=== PATIENT | female | born 1980 | race Two or more races ===

== ENCOUNTER 2023-11-10 16:56 | Inpatient (IN) | payer MEDICARE, MEDICAID ==
[~2023-11-10] VITALS: Ht 175.3 cm; Wt 106.0 kg
[~2023-11-10 16:56] MED LIST: FAMO-1 PO; GLIM4TAB7 PO; LANS15CA15 PO; METF-436 PO; OMEP-84 PO; SIMV-42 PO; SITA100T15 PO; SUCR1ORA2 PO
[2023-11-10] MEDS: normal saline 1000ML IV soln IVB ONE (20:30)
[2023-11-10] MEDS: acetaminophen 325mg tablet PO ONE (20:30)
[2023-11-10] MEDS: ondansetron/PF 4mg/2ml inj IV ONE (20:30)
[2023-11-10] MEDS ORDERED: iohexol 350MG/ML 100ml bottle IV ONE (20:42)
[2023-11-10 20:51] LABS: BASOPHILS % (AUTO) 0.4 % (0-1); EOSINOPHILS # (AUTO) 0.3 X10'3 (0-0.9); EOSINOPHILS % (AUTO) 2.1 % (0-6); HEMATOCRIT 42.8 % (35.0-45.0); HEMOGLOBIN 14.2 g/dl (12.0-16.0); LYMPHOCYTES # (AUTO) 4.7 X10'3 (1.1-4.8); LYMPHOCYTES % (AUTO) 37.4 % (21-51); MEAN CORPUSCULAR HEMOGLOBIN 27.6 PG (27.0-31.0); MEAN CORPUSCULAR HGB CONC 33.2 g/dL (33.0-36.5); MEAN CORPUSCULAR VOLUME 83.2 FL (78-98); MONOCYTES # (AUTO) 0.6 X10'3 (0-0.9); MONOCYTES % (AUTO) 4.9 % (2-12); NEUTROPHILS # (AUTO) 6.9 X10'3 (1.8-7.7); NEUTROPHILS % (AUTO) 55.2 % (42-75); PLATELET COUNT 248 X10'3 (140-440); RED BLOOD COUNT 5.14 X10'6 (4.20-5.60); RED CELL DISTRIBUTION WIDTH 13.8 % (11.5-14.5); WHITE BLOOD COUNT 12.4 X10'3 (4.5-11.0)
[2023-11-10 21:10] LABS: ALBUMIN 3.1 G/DL (3.4-5.0); ANION GAP 6 (8-16); BLOOD UREA NITROGEN 15 MG/DL (7-18); BUN/CREATININE RATIO 17.9 (10.0-20.0); CALCIUM 8.8 MG/DL (8.5-10.1); CHLORIDE 103 MMOL/L (99-107); CREATININE 0.84 MG/DL (0.40-0.90); GLUCOSE 220 MG/DL (70-104); MAGNESIUM 1.9 MG/DL (1.5-2.4); PHOSPHORUS 4.2 MG/DL (2.3-4.5); POTASSIUM 4.2 MMOL/L (3.5-5.1); PRO BRAIN NATRIURETIC PEPTIDE 190 PG/ML (0-125); SODIUM 139 MMOL/L (135-145); TOTAL CARBON DIOXIDE 30.3 MMOL/L (24-32); eCRCL 88 ML/MIN; eGFR 73 ML/MIN
[2023-11-10 21:13] LABS: ETHANOL < 10 MG/DL (<10)
[2023-11-10 21:20] LABS: APTT 27 SECONDS (22-32); PROTHROMBIN TIME 10.6 SECONDS (9.0-12.0)
[2023-11-10 22:20] LABS: BILIRUBIN,URINE NEGATIVE (Neg); CLARITY,URINE CLEAR (Clear); COLOR,URINE YELLOW (Yellow); GLUCOSE, URINE >=1000 mg/dl (Neg); KETONES,URINE NEGATIVE (Neg); LEUKOCYTE ESTERASE ,URINE NEGATIVE (Neg); NITRITES, URINE NEGATIVE (Neg); OCCULT BLOOD,URINE LARGE (Neg); PROTEIN,URINE NEGATIVE (Neg)
[2023-11-10 22:23] LABS: UA COLLECTION TYPE CLN CATCH MIDSTREAM
[2023-11-10 22:42] LABS: URINE AMPHETAMINE SCREEN NEGATIVE (Neg); URINE BARBITUATE SCREEN NEGATIVE (Neg); URINE BENZODIAZEPINES SCREEN NEGATIVE (Neg); URINE CANNABINOID SCREEN NEGATIVE (Neg); URINE COCAINE SCREEN NEGATIVE (Neg); URINE METHADONE SCREEN NEGATIVE (Neg); URINE OPIATE SCREEN NEGATIVE (Neg); URINE PHENCYCLIDINE SCREEN NEGATIVE (Neg)
[2023-11-10 22:57] LABS: BACTERIA,URINE NONE SEEN /HPF (Neg); WBC,URINE 0-4 /HPF (0-4)
[2023-11-10 22:58] LABS: SQUAMOUS EPITHELIAL CELL,UR FEW /LPF (FEW)
[2023-11-10] MEDS: hydrALAZINE 20mg/ml inj. IV ONE (23:17)
[2023-11-11] MEDS ORDERED: magnesium hydroxide 30ml (MOM) UD suspension PO PRN (03:45)
[2023-11-11] MEDS ORDERED: HYDROcodone/acetaminophen 5mg/325mg tablet PO PRN (03:45)
[2023-11-11] MEDS ORDERED: diphenhydrAMINE 50 mg/ml inj IV PRN (03:45)
[2023-11-11] MEDS ORDERED: diphenhydrAMINE 25mg capsule PO PRN (03:45)
[2023-11-11] MEDS ORDERED: morphine 2 MG/ML inj. syringe IV PRN (03:45)
[2023-11-11] MEDS ORDERED: mag hydrox/Alum hydrox/simeth 30ml oral suspension PO PRN (03:45)
[2023-11-11] MEDS ORDERED: ondansetron/PF 4mg/2ml inj IV PRN (03:45)
[2023-11-11] MEDS ORDERED: acetaminophen 325mg tablet PO PRN ×2 (03:45)
[2023-11-11] MEDS ORDERED: ondansetron 4mg rapidly disintigrating tab PO PRN (03:45)
[2023-11-11] MEDS ORDERED: DEXTROSE 15 GM of carb/4 tabs (each vial/BOTTLE has 4 tablets) PO PRN ×2 (04:15)
[2023-11-11] MEDS ORDERED: dextrose 50%-water 50ml dispensing syringe IV PRN (04:15)
[2023-11-11] MEDS ORDERED: glucagon, human recombinant 1mg kit SUBCUT PRN (04:15)
[2023-11-11] MEDS: MESSAGE TO PHARMACY PO ONE (04:30)
[2023-11-11] MEDS: docusate sod 100mg capsule PO SCH (08:00)
[2023-11-11 08:20] LABS: APTT 26 SECONDS (22-32); PROTHROMBIN TIME 10.9 SECONDS (9.0-12.0)
[2023-11-11 08:41] LABS: THYROID STIMULATING HORMONE 0.63 ulU/ml (0.34-4.50)
[2023-11-11] MEDS: normal saline 1000ml 1,000 ML IV SCH (12:35)
[2023-11-11] MEDS: aspirin 81mg, enteric-coated 1 TAB TABLET.DR PO SCH (12:35)
[2023-11-11] MEDS: aspirin 300mg supp.rect RC ONE (12:55)
[2023-11-11 19:20] VITALS: BP 187/71; PULSE 73; RESP 16; TEMP 98; O2SAT 92
[2023-11-11 20:00] VITALS: BP 187/71; PULSE 16; RESP 13; RESP 18; TEMP 98; O2SAT 92; O2SAT 99
[2023-11-11] MEDS ORDERED: temazepam 15mg capsule PO PRN (21:00)
[2023-11-11] MEDS: clopidogrel 75mg tablet PO ONE (21:21)
[2023-11-11] MEDS: heparin, porcine 5000 units/ml vial SQ SCH (21:21)
[2023-11-11 22:00] VITALS: BP 176/65; PULSE 60; RESP 18; TEMP 98.2; O2SAT 99
[2023-11-11] MEDS: modafinil 100mg tablet PO SCH (22:06)
[2023-11-11] MEDS: insulin glargine (Lantus) pen - multi-dose SQ SCH (22:06)
[2023-11-12] VITALS (9 sets, daily range): BP systolic 132–184; BP diastolic 60–99; PULSE 59–85; RESP 13–18; TEMP 97.6–98.6; O2SAT 96–99
[2023-11-12 06:10] LABS: BASOPHILS # (AUTO) 0.1 X10'3 (0-0.2); BASOPHILS % (AUTO) 0.5 % (0-1); EOSINOPHILS # (AUTO) 0.2 X10'3 (0-0.9); EOSINOPHILS % (AUTO) 1.6 % (0-6); HEMATOCRIT 42.8 % (35.0-45.0); HEMOGLOBIN 14.4 g/dl (12.0-16.0); LYMPHOCYTES # (AUTO) 4.1 X10'3 (1.1-4.8); LYMPHOCYTES % (AUTO) 35.8 % (21-51); MEAN CORPUSCULAR HEMOGLOBIN 27.8 PG (27.0-31.0); MEAN CORPUSCULAR HGB CONC 33.5 g/dL (33.0-36.5); MEAN CORPUSCULAR VOLUME 82.7 FL (78-98); MEAN PLATELET VOLUME 8.3 FL (7.4-10.4); MONOCYTES # (AUTO) 0.7 X10'3 (0-0.9); MONOCYTES % (AUTO) 6.1 % (2-12); NEUTROPHILS # (AUTO) 6.4 X10'3 (1.8-7.7); PLATELET COUNT 232 X10'3 (140-440); RED BLOOD COUNT 5.17 X10'6 (4.20-5.60); RED CELL DISTRIBUTION WIDTH 13.7 % (11.5-14.5); WHITE BLOOD COUNT 11.5 X10'3 (4.5-11.0)
[2023-11-12 06:19] LABS: ALANINE AMINOTRANSFERASE 11 U/L (12-78); ALBUMIN 3.1 G/DL (3.4-5.0); ALBUMIN/GLOBULIN RATIO 0.7 (1.1-1.5); ALKALINE PHOSPHATASE 67 IU/L (46-116); ANION GAP 12 (8-16); ASPARTATE AMINO TRANSFERASE 13 U/L (10-37); BILIRUBIN,TOTAL 1.2 MG/DL (0.1-1.0); BLOOD UREA NITROGEN 15 MG/DL (7-18); BUN/CREATININE RATIO 17.6 (10.0-20.0); CALCIUM 8.4 MG/DL (8.5-10.1); CHLORIDE 105 MMOL/L (99-107); CHOL/HDL RATIO 4.9 (0.00-4.99); CHOLESTEROL 229 MG/DL (0-200); CREATININE 0.85 MG/DL (0.40-0.90); GLUCOSE 204 MG/DL (70-104); HDL CHOLESTEROL 47 MG/DL (35-60); LDL CHOLESTEROL 158 MG/DL (50-100); POTASSIUM 3.7 MMOL/L (3.5-5.1); SODIUM 141 MMOL/L (135-145); TOTAL CARBON DIOXIDE 23.8 MMOL/L (24-32); TOTAL PROTEIN 7.7 G/DL (6.4-8.2); TRIGLYCERIDES 131 MG/DL (20-135); eCRCL 87 ML/MIN; eGFR 72 ML/MIN
[2023-11-12] MEDS: atorvastatin 20mg tablet PO SCH (07:16)
[2023-11-12] MEDS: clopidogrel 75mg tablet PO SCH (07:16)
[2023-11-12] MEDS: losartan 25mg tablet PO SCH (07:17)
[2023-11-12] MEDS ORDERED: atorvastatin 20mg tablet PO SCH (08:00)
[2023-11-12] MEDS: insulin Lispro (HumaLOG) vial - multi-dose SQ SCH (09:14)
[2023-11-12] MEDS: amLODIPine 5mg tablet PO SCH (09:53)
[2023-11-13] VITALS (10 sets, daily range): BP systolic 145–159; BP diastolic 62–80; PULSE 55–85; RESP 12–19; TEMP 96.8–98.4; O2SAT 94–100
[2023-11-13 07:08] LABS: BASOPHILS # (AUTO) 0.1 X10'3 (0-0.2); EOSINOPHILS # (AUTO) 0.2 X10'3 (0-0.9); EOSINOPHILS % (AUTO) 1.8 % (0-6); HEMATOCRIT 42.2 % (35.0-45.0); HEMOGLOBIN 14.1 g/dl (12.0-16.0); LYMPHOCYTES # (AUTO) 3.9 X10'3 (1.1-4.8); MEAN CORPUSCULAR HEMOGLOBIN 27.6 PG (27.0-31.0); MEAN CORPUSCULAR HGB CONC 33.4 g/dL (33.0-36.5); MEAN CORPUSCULAR VOLUME 82.6 FL (78-98); MEAN PLATELET VOLUME 8.4 FL (7.4-10.4); MONOCYTES # (AUTO) 0.5 X10'3 (0-0.9); MONOCYTES % (AUTO) 5.4 % (2-12); NEUTROPHILS # (AUTO) 5.3 X10'3 (1.8-7.7); NEUTROPHILS % (AUTO) 52.8 % (42-75); PLATELET COUNT 244 X10'3 (140-440); RED BLOOD COUNT 5.11 X10'6 (4.20-5.60); RED CELL DISTRIBUTION WIDTH 13.5 % (11.5-14.5)
[2023-11-13 08:08] LABS: ALANINE AMINOTRANSFERASE 13 U/L (12-78); ALBUMIN 2.9 G/DL (3.4-5.0); ALBUMIN/GLOBULIN RATIO 0.6 (1.1-1.5); ALKALINE PHOSPHATASE 62 IU/L (46-116); ANION GAP 13 (8-16); BILIRUBIN,TOTAL 1.2 MG/DL (0.1-1.0); BLOOD UREA NITROGEN 17 MG/DL (7-18); BUN/CREATININE RATIO 19.8 (10.0-20.0); CALCIUM 8.5 MG/DL (8.5-10.1); CHLORIDE 105 MMOL/L (99-107); CREATININE 0.86 MG/DL (0.40-0.90); GLUCOSE 165 MG/DL (70-104); SODIUM 140 MMOL/L (135-145); TOTAL CARBON DIOXIDE 22.2 MMOL/L (24-32); TOTAL PROTEIN 7.7 G/DL (6.4-8.2); eCRCL 86 ML/MIN; eGFR 71 ML/MIN
[2023-11-13 08:14] LABS: ASPARTATE AMINO TRANSFERASE 22 U/L (10-37); POTASSIUM 3.5 MMOL/L (3.5-5.1)
[2023-11-13] MEDS ORDERED: iohexol 350MG/ML 100ml bottle IV ONE (17:16)
[2023-11-13] MEDS: aspirin 300mg supp.rect RC SCH (18:50)
[2023-11-14] VITALS (12 sets, daily range): BP systolic 133–176; BP diastolic 69–90; PULSE 53–79; RESP 15–24; TEMP 96–98.6; O2SAT 93–98
[2023-11-14 06:45] LABS: BASOPHILS % (AUTO) 0.4 % (0-1); EOSINOPHILS # (AUTO) 0.2 X10'3 (0-0.9); EOSINOPHILS % (AUTO) 2.2 % (0-6); HEMATOCRIT 44.5 % (35.0-45.0); HEMOGLOBIN 14.9 g/dl (12.0-16.0); LYMPHOCYTES # (AUTO) 3.5 X10'3 (1.1-4.8); LYMPHOCYTES % (AUTO) 34.5 % (21-51); MEAN CORPUSCULAR HEMOGLOBIN 27.8 PG (27.0-31.0); MEAN CORPUSCULAR HGB CONC 33.6 g/dL (33.0-36.5); MEAN CORPUSCULAR VOLUME 82.9 FL (78-98); MEAN PLATELET VOLUME 8.1 FL (7.4-10.4); MONOCYTES # (AUTO) 0.6 X10'3 (0-0.9); MONOCYTES % (AUTO) 5.7 % (2-12); NEUTROPHILS # (AUTO) 5.7 X10'3 (1.8-7.7); NEUTROPHILS % (AUTO) 57.2 % (42-75); PLATELET COUNT 238 X10'3 (140-440); RED BLOOD COUNT 5.37 X10'6 (4.20-5.60); RED CELL DISTRIBUTION WIDTH 13.6 % (11.5-14.5)
[2023-11-14 07:15] LABS: ALANINE AMINOTRANSFERASE 14 U/L (12-78); ALBUMIN 3.1 G/DL (3.4-5.0); ALBUMIN/GLOBULIN RATIO 0.6 (1.1-1.5); ALKALINE PHOSPHATASE 65 IU/L (46-116); ANION GAP 15 (8-16); ASPARTATE AMINO TRANSFERASE 14 U/L (10-37); BILIRUBIN,TOTAL 1.1 MG/DL (0.1-1.0); BLOOD UREA NITROGEN 16 MG/DL (7-18); BUN/CREATININE RATIO 18.6 (10.0-20.0); CALCIUM 8.5 MG/DL (8.5-10.1); CHLORIDE 106 MMOL/L (99-107); CREATININE 0.86 MG/DL (0.40-0.90); GLUCOSE 131 MG/DL (70-104); POTASSIUM 3.3 MMOL/L (3.5-5.1); SODIUM 143 MMOL/L (135-145); TOTAL CARBON DIOXIDE 21.6 MMOL/L (24-32); TOTAL PROTEIN 8.1 G/DL (6.4-8.2); eCRCL 86 ML/MIN; eGFR 71 ML/MIN
[2023-11-15] VITALS (12 sets, daily range): BP systolic 160–201; BP diastolic 75–107; PULSE 62–93; RESP 10–24; TEMP 97.4–98; O2SAT 95–96
[2023-11-15 07:22] LABS: BASOPHILS % (AUTO) 0.4 % (0-1); EOSINOPHILS # (AUTO) 0.2 X10'3 (0-0.9); EOSINOPHILS % (AUTO) 1.8 % (0-6); HEMOGLOBIN 14.8 g/dl (12.0-16.0); LYMPHOCYTES # (AUTO) 2.9 X10'3 (1.1-4.8); LYMPHOCYTES % (AUTO) 30.6 % (21-51); MEAN CORPUSCULAR HEMOGLOBIN 27.8 PG (27.0-31.0); MEAN CORPUSCULAR HGB CONC 33.6 g/dL (33.0-36.5); MEAN CORPUSCULAR VOLUME 82.8 FL (78-98); MEAN PLATELET VOLUME 8.7 FL (7.4-10.4); MONOCYTES # (AUTO) 0.6 X10'3 (0-0.9); NEUTROPHILS # (AUTO) 5.8 X10'3 (1.8-7.7); NEUTROPHILS % (AUTO) 61.2 % (42-75); PLATELET COUNT 258 X10'3 (140-440); RED BLOOD COUNT 5.32 X10'6 (4.20-5.60); RED CELL DISTRIBUTION WIDTH 13.5 % (11.5-14.5); WHITE BLOOD COUNT 9.4 X10'3 (4.5-11.0)
[2023-11-15 07:35] LABS: ALANINE AMINOTRANSFERASE 16 U/L (12-78); ALBUMIN 3.1 G/DL (3.4-5.0); ALBUMIN/GLOBULIN RATIO 0.6 (1.1-1.5); ALKALINE PHOSPHATASE 61 IU/L (46-116); ANION GAP 15 (8-16); ASPARTATE AMINO TRANSFERASE 14 U/L (10-37); BILIRUBIN,TOTAL 1.1 MG/DL (0.1-1.0); BLOOD UREA NITROGEN 18 MG/DL (7-18); BUN/CREATININE RATIO 22.8 (10.0-20.0); CALCIUM 8.6 MG/DL (8.5-10.1); CHLORIDE 106 MMOL/L (99-107); CREATININE 0.79 MG/DL (0.40-0.90); GLUCOSE 120 MG/DL (70-104); POTASSIUM 3.2 MMOL/L (3.5-5.1); SODIUM 143 MMOL/L (135-145); TOTAL CARBON DIOXIDE 21.7 MMOL/L (24-32); eCRCL 94 ML/MIN; eGFR 79 ML/MIN
[2023-11-15] MEDS ORDERED: hydrALAZINE 20mg/ml inj. IV PRN (10:50)
[2023-11-15] MEDS: aspirin 300mg supp.rect RC ONE (16:15)
[2023-11-15] MEDS ORDERED: magnesium 4gm in 100ml NS 100 ML IV PRN (18:50)
[2023-11-15] MEDS ORDERED: potassium Cl 20 mEq SR tablet PO PRN (18:50)
[2023-11-15] MEDS ORDERED: magnesium Cl slow-release 64mg tablet PO PRN (18:50)
[2023-11-15] MEDS ORDERED: magnesium 2GM in 50ml NS 50 ML IV PRN (18:50)
[2023-11-15] MEDS ORDERED: iohexol 350MG/ML 100ml bottle IV ONE (19:41)
[2023-11-15] MEDS: K and/or MAG REPLACEMENT MC SCH (20:00)
[2023-11-15] MEDS: morphine 2 MG/ML inj. syringe IV PRN (20:26)
[2023-11-15] MEDS: potassium Cl 20 mEq SR tablet PO PRN (21:55)
[2023-11-16] VITALS (16 sets, daily range): BP systolic 129–190; BP diastolic 72–95; PULSE 71–96; RESP 14–18; TEMP 97.6–98.9; O2SAT 87–98
[2023-11-16] MEDS: potassium Cl 40MEQ/1/2NS 520ml 520 ML IV PRN (00:02)
[2023-11-16 06:27] LABS: BASOPHILS # (AUTO) 0.1 X10'3 (0-0.2); BASOPHILS % (AUTO) 0.5 % (0-1); EOSINOPHILS # (AUTO) 0.2 X10'3 (0-0.9); EOSINOPHILS % (AUTO) 1.8 % (0-6); HEMATOCRIT 44.2 % (35.0-45.0); HEMOGLOBIN 14.9 g/dl (12.0-16.0); LYMPHOCYTES # (AUTO) 3.4 X10'3 (1.1-4.8); LYMPHOCYTES % (AUTO) 28.8 % (21-51); MEAN CORPUSCULAR HEMOGLOBIN 27.9 PG (27.0-31.0); MEAN CORPUSCULAR HGB CONC 33.6 g/dL (33.0-36.5); MEAN CORPUSCULAR VOLUME 82.8 FL (78-98); MEAN PLATELET VOLUME 8.6 FL (7.4-10.4); MONOCYTES # (AUTO) 0.6 X10'3 (0-0.9); MONOCYTES % (AUTO) 5.5 % (2-12); NEUTROPHILS # (AUTO) 7.4 X10'3 (1.8-7.7); NEUTROPHILS % (AUTO) 63.4 % (42-75); PLATELET COUNT 264 X10'3 (140-440); RED BLOOD COUNT 5.33 X10'6 (4.20-5.60); RED CELL DISTRIBUTION WIDTH 13.5 % (11.5-14.5); WHITE BLOOD COUNT 11.7 X10'3 (4.5-11.0)
[2023-11-16 06:51] LABS: ALANINE AMINOTRANSFERASE 14 U/L (12-78); ALBUMIN 3.1 G/DL (3.4-5.0); ALBUMIN/GLOBULIN RATIO 0.6 (1.1-1.5); ALKALINE PHOSPHATASE 63 IU/L (46-116); ANION GAP 15 (8-16); ASPARTATE AMINO TRANSFERASE 13 U/L (10-37); BILIRUBIN,TOTAL 1.1 MG/DL (0.1-1.0); BLOOD UREA NITROGEN 17 MG/DL (7-18); BUN/CREATININE RATIO 21.5 (10.0-20.0); CALCIUM 8.8 MG/DL (8.5-10.1); CHLORIDE 105 MMOL/L (99-107); CREATININE 0.79 MG/DL (0.40-0.90); GLUCOSE 140 MG/DL (70-104); PREALBUMIN 18.2 MG/DL (19-36); SODIUM 140 MMOL/L (135-145); TOTAL CARBON DIOXIDE 19.9 MMOL/L (24-32); TOTAL PROTEIN 8.2 G/DL (6.4-8.2); eCRCL 94 ML/MIN; eGFR 79 ML/MIN
[2023-11-16] MEDS: MIDAZolam 1 MG/ML 5ML VIAL IV ONE (13:00)
[2023-11-16] MEDS: fentaNYL/PF 50MCG/1 ML 2ML syringe IV ONE (13:00)
[2023-11-16] MEDS ORDERED: midazolam 1 mg/ML 2ml injection ONE (14:39)
[2023-11-16] MEDS ORDERED: fentaNYL/PF 50MCG/1 ML 2ML syringe ONE (14:39)
[2023-11-16] MEDS: docusate sodium 100mg/10ml UD cup PO SCH (20:00)
[2023-11-16] MEDS: oxymetazoline 15 ML nasal spray NS ONE (20:18)
[2023-11-17] VITALS (9 sets, daily range): BP systolic 134–189; BP diastolic 77–106; PULSE 72–99; RESP 16; TEMP 97.4–98.9; O2SAT 93–98
[2023-11-17 08:17] LABS: HIV ANTIBODY 1&2 RAPID NON-REACTIVE (Neg)
[2023-11-18] VITALS (9 sets, daily range): BP systolic 126–171; BP diastolic 78–96; PULSE 63–96; RESP 14–20; TEMP 97.3–98.9; O2SAT 92–97
[2023-11-18 06:59] LABS: BASOPHILS # (AUTO) 0.1 X10'3 (0-0.2); BASOPHILS % (AUTO) 0.6 % (0-1); EOSINOPHILS # (AUTO) 0.3 X10'3 (0-0.9); EOSINOPHILS % (AUTO) 2.6 % (0-6); HEMATOCRIT 43.2 % (35.0-45.0); HEMOGLOBIN 14.5 g/dl (12.0-16.0); LYMPHOCYTES # (AUTO) 2.8 X10'3 (1.1-4.8); LYMPHOCYTES % (AUTO) 25.6 % (21-51); MEAN CORPUSCULAR HEMOGLOBIN 27.9 PG (27.0-31.0); MEAN CORPUSCULAR HGB CONC 33.6 g/dL (33.0-36.5); MEAN CORPUSCULAR VOLUME 82.8 FL (78-98); MEAN PLATELET VOLUME 8.7 FL (7.4-10.4); MONOCYTES # (AUTO) 0.7 X10'3 (0-0.9); MONOCYTES % (AUTO) 5.9 % (2-12); NEUTROPHILS # (AUTO) 7.2 X10'3 (1.8-7.7); NEUTROPHILS % (AUTO) 65.3 % (42-75); PLATELET COUNT 237 X10'3 (140-440); RED BLOOD COUNT 5.21 X10'6 (4.20-5.60); RED CELL DISTRIBUTION WIDTH 13.9 % (11.5-14.5)
[2023-11-18 07:19] LABS: ALANINE AMINOTRANSFERASE 11 U/L (12-78); ALBUMIN 2.9 G/DL (3.4-5.0); ALBUMIN/GLOBULIN RATIO 0.6 (1.1-1.5); ALKALINE PHOSPHATASE 60 IU/L (46-116); ANION GAP 11 (8-16); ASPARTATE AMINO TRANSFERASE 14 U/L (10-37); BLOOD UREA NITROGEN 19 MG/DL (7-18); BUN/CREATININE RATIO 26.8 (10.0-20.0); CALCIUM 8.7 MG/DL (8.5-10.1); CHLORIDE 106 MMOL/L (99-107); CREATININE 0.71 MG/DL (0.40-0.90); GLUCOSE 165 MG/DL (70-104); POTASSIUM 3.7 MMOL/L (3.5-5.1); PREALBUMIN 17.2 MG/DL (19-36); SODIUM 140 MMOL/L (135-145); TOTAL CARBON DIOXIDE 23.5 MMOL/L (24-32); eCRCL 105 ML/MIN; eGFR 89 ML/MIN
[2023-11-19] VITALS (13 sets, daily range): BP systolic 122–171; BP diastolic 65–88; PULSE 62–77; RESP 13–24; TEMP 96.8–98.6; O2SAT 94–99
[2023-11-19 07:45] LABS: BASOPHILS % (AUTO) 0.5 % (0-1); EOSINOPHILS # (AUTO) 0.3 X10'3 (0-0.9); EOSINOPHILS % (AUTO) 2.9 % (0-6); HEMOGLOBIN 14.4 g/dl (12.0-16.0); LYMPHOCYTES # (AUTO) 2.8 X10'3 (1.1-4.8); LYMPHOCYTES % (AUTO) 26.5 % (21-51); MEAN CORPUSCULAR HEMOGLOBIN 27.8 PG (27.0-31.0); MEAN CORPUSCULAR HGB CONC 33.4 g/dL (33.0-36.5); MEAN CORPUSCULAR VOLUME 83.3 FL (78-98); MEAN PLATELET VOLUME 8.8 FL (7.4-10.4); MONOCYTES # (AUTO) 0.6 X10'3 (0-0.9); MONOCYTES % (AUTO) 5.6 % (2-12); NEUTROPHILS # (AUTO) 6.8 X10'3 (1.8-7.7); NEUTROPHILS % (AUTO) 64.5 % (42-75); PLATELET COUNT 248 X10'3 (140-440); RED BLOOD COUNT 5.16 X10'6 (4.20-5.60); RED CELL DISTRIBUTION WIDTH 13.6 % (11.5-14.5); WHITE BLOOD COUNT 10.6 X10'3 (4.5-11.0)
[2023-11-19] MEDS: chlorhexidine gluconate 15ml Cup****oral rinse MM SCH (08:00)
[2023-11-19 09:39] LABS: ALANINE AMINOTRANSFERASE 11 U/L (12-78); ALBUMIN/GLOBULIN RATIO 0.6 (1.1-1.5); ALKALINE PHOSPHATASE 58 IU/L (46-116); ANION GAP 12 (8-16); ASPARTATE AMINO TRANSFERASE 13 U/L (10-37); BILIRUBIN,TOTAL 0.9 MG/DL (0.1-1.0); BLOOD UREA NITROGEN 22 MG/DL (7-18); BUN/CREATININE RATIO 28.6 (10.0-20.0); CALCIUM 9.2 MG/DL (8.5-10.1); CHLORIDE 106 MMOL/L (99-107); CREATININE 0.77 MG/DL (0.40-0.90); GLUCOSE 165 MG/DL (70-104); POTASSIUM 3.6 MMOL/L (3.5-5.1); SODIUM 142 MMOL/L (135-145); TOTAL CARBON DIOXIDE 24.1 MMOL/L (24-32); TOTAL PROTEIN 8.2 G/DL (6.4-8.2); eCRCL 96 ML/MIN; eGFR 81 ML/MIN
[2023-11-19] MEDS ORDERED: BUPIVAcaine 2.5mg/ml inj 50ml vial (contains preservative) ONE (15:31)
[2023-11-19] MEDS ORDERED: sevoflurane 250ml liquid IH ONE (15:48)
[2023-11-19] MEDS ORDERED: propofol 10mg/ml 20ml vial IV ONE (15:48)
[2023-11-19] MEDS ORDERED: fentaNYL/PF 50MCG/1 ML 2ML syringe ONE (15:58)
[2023-11-19] MEDS: BUPIVAcaine/PF 2.5 mg/ml (0.25%) 30ml vial IJ ONE (16:50)
[2023-11-19] MEDS ORDERED: ceFOXitin 1000 MG inj ONE ×2 (17:32)
[2023-11-19] MEDS ORDERED: midazolam 1 mg/ML 2ml injection ONE (17:32)
[2023-11-19] MEDS ORDERED: LIDOcaine 2% (20mg/ml) 5ml vial ONE (17:33)
[2023-11-19] MEDS ORDERED: rocuronium 10mg/ml inj IV ONE ×2 (17:33)
[2023-11-19] MEDS ORDERED: etomidate 2mg/ml inj. ONE (17:33)
[2023-11-19] MEDS ORDERED: phenylephrine 10mg/ml inj. -priapism dosing ONE (17:33)
[2023-11-19] MEDS ORDERED: ondansetron/PF 4mg/2ml inj ONE (17:34)
[2023-11-19] MEDS ORDERED: dexamethasone sod phosphate 4mg/ml inj. ONE (17:34)
[2023-11-19] MEDS ORDERED: neostigmine methylsulfate 1 MG/ML 10ml vial ONE (17:39)
[2023-11-19] MEDS ORDERED: glycopyrrolate 0.2mg/ml inj ONE (17:39)
[2023-11-19] MEDS: ringers solution, lacted 1,000 ML IV SCH (18:05)
[2023-11-19] MEDS ORDERED: proCHLORperazine 10 MG/2 ml inj IV PRN (18:05)
[2023-11-19] MEDS ORDERED: ondansetron/PF 4mg/2ml inj IV PRN (18:05)
[2023-11-19] MEDS ORDERED: HYDROmorphone/PF 0.2 MG/ML SYRINGE IV PRN ×2 (18:05)
[2023-11-19] MEDS ORDERED: morphine 4 MG/ML inj SYRINge IV PRN (18:05)
[2023-11-19] MEDS ORDERED: morphine 2 MG/ML inj. syringe IV PRN (18:05)
[2023-11-19 20:57] LABS: PREOP HCG, QL SERUM NEGATIVE (NEGATIVE)
[2023-11-19] MEDS: acetaminophen 1,000mg/100ml IV 100 ML IV ONE (21:34)
[2023-11-20] VITALS (9 sets, daily range): BP systolic 123–180; BP diastolic 59–86; PULSE 56–70; RESP 15–18; TEMP 97.7–99.1; O2SAT 95–97
[2023-11-20] MEDS: acetaminophen 650mg rectal suppository RC PRN (05:23)
[2023-11-20 07:45] LABS: BASOPHILS % (AUTO) 0.2 % (0-1); EOSINOPHILS % (AUTO) 0 % (0-6); HEMATOCRIT 41.6 % (35.0-45.0); HEMOGLOBIN 13.6 g/dl (12.0-16.0); LYMPHOCYTES # (AUTO) 2.2 X10'3 (1.1-4.8); LYMPHOCYTES % (AUTO) 16.5 % (21-51); MEAN CORPUSCULAR HEMOGLOBIN 27.5 PG (27.0-31.0); MEAN CORPUSCULAR HGB CONC 32.7 g/dL (33.0-36.5); MEAN CORPUSCULAR VOLUME 84.2 FL (78-98); MONOCYTES # (AUTO) 0.8 X10'3 (0-0.9); MONOCYTES % (AUTO) 5.8 % (2-12); NEUTROPHILS # (AUTO) 10.3 X10'3 (1.8-7.7); NEUTROPHILS % (AUTO) 77.5 % (42-75); PLATELET COUNT 247 X10'3 (140-440); RED BLOOD COUNT 4.94 X10'6 (4.20-5.60); RED CELL DISTRIBUTION WIDTH 13.3 % (11.5-14.5); WHITE BLOOD COUNT 13.3 X10'3 (4.5-11.0)
[2023-11-20 08:02] LABS: ALANINE AMINOTRANSFERASE 12 U/L (12-78); ALBUMIN 2.7 G/DL (3.4-5.0); ALBUMIN/GLOBULIN RATIO 0.6 (1.1-1.5); ALKALINE PHOSPHATASE 55 IU/L (46-116); ANION GAP 10 (8-16); ASPARTATE AMINO TRANSFERASE 14 U/L (10-37); BILIRUBIN,TOTAL 0.9 MG/DL (0.1-1.0); BLOOD UREA NITROGEN 28 MG/DL (7-18); BUN/CREATININE RATIO 34.1 (10.0-20.0); CHLORIDE 108 MMOL/L (99-107); CREATININE 0.82 MG/DL (0.40-0.90); GLUCOSE 161 MG/DL (70-104); POTASSIUM 4.1 MMOL/L (3.5-5.1); SODIUM 143 MMOL/L (135-145); TOTAL CARBON DIOXIDE 25.4 MMOL/L (24-32); TOTAL PROTEIN 7.6 G/DL (6.4-8.2); eCRCL 91 ML/MIN; eGFR 75 ML/MIN
[2023-11-20] MEDS: pneumococcal 23-VAL P-sac vacc 25 mcg/0.5ml vial IMVAC ONE (10:10)
[2023-11-20] MEDS ORDERED: mag hydrox/Alum hydrox/simeth 30ml oral suspension GT PRN (11:17)
[2023-11-20] MEDS: apixaban 5mg tablet GT SCH (20:03)
[2023-11-20] MEDS: modafinil 100mg tablet GT SCH (20:03)
[2023-11-20] MEDS: docusate sodium 100mg/10ml UD cup GT SCH (20:03)
[2023-11-20] MEDS: insulin regular, human U-100 3ml vial - multi-dose SQ SCH (20:09)
[2023-11-21] VITALS (9 sets, daily range): BP systolic 132–162; BP diastolic 68–92; PULSE 56–74; RESP 14–21; TEMP 96.6–98.2; O2SAT 95–98
[2023-11-21 07:36] LABS: BASOPHILS # (AUTO) 0.1 X10'3 (0-0.2); BASOPHILS % (AUTO) 0.5 % (0-1); EOSINOPHILS # (AUTO) 0.2 X10'3 (0-0.9); EOSINOPHILS % (AUTO) 1.8 % (0-6); HEMATOCRIT 40.5 % (35.0-45.0); HEMOGLOBIN 13.2 g/dl (12.0-16.0); LYMPHOCYTES # (AUTO) 2.7 X10'3 (1.1-4.8); LYMPHOCYTES % (AUTO) 24.7 % (21-51); MEAN CORPUSCULAR HEMOGLOBIN 27.4 PG (27.0-31.0); MEAN CORPUSCULAR HGB CONC 32.6 g/dL (33.0-36.5); MEAN CORPUSCULAR VOLUME 83.9 FL (78-98); MEAN PLATELET VOLUME 9.2 FL (7.4-10.4); MONOCYTES # (AUTO) 0.8 X10'3 (0-0.9); MONOCYTES % (AUTO) 7.1 % (2-12); NEUTROPHILS # (AUTO) 7.2 X10'3 (1.8-7.7); NEUTROPHILS % (AUTO) 65.9 % (42-75); PLATELET COUNT 231 X10'3 (140-440); RED BLOOD COUNT 4.83 X10'6 (4.20-5.60); RED CELL DISTRIBUTION WIDTH 13.6 % (11.5-14.5)
[2023-11-21 07:45] LABS: ALANINE AMINOTRANSFERASE 13 U/L (12-78); ALBUMIN 2.6 G/DL (3.4-5.0); ALBUMIN/GLOBULIN RATIO 0.6 (1.1-1.5); ALKALINE PHOSPHATASE 53 IU/L (46-116); ANION GAP 7 (8-16); ASPARTATE AMINO TRANSFERASE 16 U/L (10-37); BILIRUBIN,TOTAL 0.6 MG/DL (0.1-1.0); BLOOD UREA NITROGEN 24 MG/DL (7-18); BUN/CREATININE RATIO 32.4 (10.0-20.0); CALCIUM 8.6 MG/DL (8.5-10.1); CHLORIDE 108 MMOL/L (99-107); CREATININE 0.74 MG/DL (0.40-0.90); GLUCOSE 183 MG/DL (70-104); POTASSIUM 3.7 MMOL/L (3.5-5.1); SODIUM 143 MMOL/L (135-145); TOTAL CARBON DIOXIDE 28.5 MMOL/L (24-32); TOTAL PROTEIN 7.2 G/DL (6.4-8.2); eCRCL 100 ML/MIN; eGFR 85 ML/MIN
[2023-11-21] MEDS: atorvastatin 20mg tablet GT SCH (09:12)
[2023-11-21 15:27] LABS: ACTIVATED PROTEIN C RESISTANCE 3.1 ratio (2.2-3.5); ANTITHROMBIN ACTIVITY 112 % (75-135); ANTITHROMBIN ANTIGEN 93 % (72-124); PROTEIN S, FREE 88 % (61-136); PROTEIN S, TOTAL 90 % (60-150)
[2023-11-22] VITALS (7 sets, daily range): BP systolic 135–161; BP diastolic 67–84; PULSE 61–83; RESP 14–22; TEMP 97.4–99.5; O2SAT 97–100
[2023-11-22 07:49] LABS: BASOPHILS % (AUTO) 0.4 % (0-1); EOSINOPHILS # (AUTO) 0.3 X10'3 (0-0.9); EOSINOPHILS % (AUTO) 2.5 % (0-6); HEMATOCRIT 42.1 % (35.0-45.0); HEMOGLOBIN 13.8 g/dl (12.0-16.0); LYMPHOCYTES # (AUTO) 3.2 X10'3 (1.1-4.8); MEAN CORPUSCULAR HEMOGLOBIN 27.3 PG (27.0-31.0); MEAN CORPUSCULAR HGB CONC 32.7 g/dL (33.0-36.5); MEAN CORPUSCULAR VOLUME 83.6 FL (78-98); MEAN PLATELET VOLUME 9.3 FL (7.4-10.4); MONOCYTES # (AUTO) 0.7 X10'3 (0-0.9); MONOCYTES % (AUTO) 5.9 % (2-12); NEUTROPHILS # (AUTO) 6.9 X10'3 (1.8-7.7); NEUTROPHILS % (AUTO) 62.2 % (42-75); PLATELET COUNT 240 X10'3 (140-440); RED BLOOD COUNT 5.04 X10'6 (4.20-5.60); RED CELL DISTRIBUTION WIDTH 13.7 % (11.5-14.5); WHITE BLOOD COUNT 11.2 X10'3 (4.5-11.0)
[2023-11-22 07:50] LABS: ALANINE AMINOTRANSFERASE 13 U/L (12-78); ALBUMIN 2.7 G/DL (3.4-5.0); ALBUMIN/GLOBULIN RATIO 0.6 (1.1-1.5); ALKALINE PHOSPHATASE 59 IU/L (46-116); ANION GAP 8 (8-16); ASPARTATE AMINO TRANSFERASE 15 U/L (10-37); BILIRUBIN,TOTAL 0.5 MG/DL (0.1-1.0); BLOOD UREA NITROGEN 19 MG/DL (7-18); BUN/CREATININE RATIO 26.4 (10.0-20.0); CALCIUM 8.7 MG/DL (8.5-10.1); CHLORIDE 103 MMOL/L (99-107); CREATININE 0.72 MG/DL (0.40-0.90); GLUCOSE 210 MG/DL (70-104); PHOSPHORUS 3.9 MG/DL (2.3-4.5); SODIUM 142 MMOL/L (135-145); TOTAL CARBON DIOXIDE 31.3 MMOL/L (24-32); TOTAL PROTEIN 7.6 G/DL (6.4-8.2); eCRCL 103 ML/MIN; eGFR 88 ML/MIN
[2023-11-22 18:54] LABS: HEPATITIS C VIRUS ANTIBODY Non Reactive (Non Reactive)
[2023-11-23] VITALS (9 sets, daily range): BP systolic 110–153; BP diastolic 56–86; PULSE 72–87; RESP 16–20; TEMP 98.2–100.8; O2SAT 96–99
[2023-11-23] MEDS: magnesium hydroxide 30ml (MOM) UD suspension GT PRN (00:31)
[2023-11-23] MEDS: losartan 25mg tablet PO SCH (08:00)
[2023-11-23 14:54] LABS: ATYPICAL PANCA <1:20 titer (Neg:<1:20); CYTOPLASMIC (C-ANCA) <1:20 titer (Neg:<1:20); PERINUCLEAR (P-ANCA) <1:20 titer (Neg:<1:20)
[2023-11-24] VITALS (11 sets, daily range): BP systolic 106–151; BP diastolic 52–84; PULSE 60–92; RESP 16–20; TEMP 97.2–101; O2SAT 97–99
[2023-11-24] MEDS: acetaminophen 325mg/10.15ml oral unit dose solution GT PRN (04:23)
[2023-11-24 12:43] LABS: BASOPHILS # (AUTO) 0.1 X10'3 (0-0.2); EOSINOPHILS # (AUTO) 0.4 X10'3 (0-0.9); LYMPHOCYTES # (AUTO) 3.1 X10'3 (1.1-4.8); MEAN CORPUSCULAR HGB CONC 32.4 g/dL (33.0-36.5); NEUTROPHILS % (AUTO) 69.4 % (42-75); RED BLOOD COUNT 5.11 X10'6 (4.20-5.60)
[2023-11-24 12:45] LABS: BASOPHILS % (AUTO) 0.6 % (0-1); EOSINOPHILS % (AUTO) 2.9 % (0-6); HEMOGLOBIN 13.9 g/dl (12.0-16.0); LYMPHOCYTES % (AUTO) 20.7 % (21-51); MEAN CORPUSCULAR HEMOGLOBIN 27.3 PG (27.0-31.0); MEAN CORPUSCULAR VOLUME 84.3 FL (78-98); MONOCYTES % (AUTO) 6.4 % (2-12); NEUTROPHILS # (AUTO) 10.4 X10'3 (1.8-7.7); PLATELET COUNT 268 X10'3 (140-440); RED CELL DISTRIBUTION WIDTH 13.9 % (11.5-14.5)
[2023-11-24 13:07] LABS: ALBUMIN 2.8 G/DL (3.4-5.0); ALBUMIN/GLOBULIN RATIO 0.5 (1.1-1.5); ALKALINE PHOSPHATASE 47 IU/L (46-116); ANION GAP 3 (8-16); ASPARTATE AMINO TRANSFERASE 11 U/L (10-37); BILIRUBIN,TOTAL 0.7 MG/DL (0.1-1.0); BLOOD UREA NITROGEN 34 MG/DL (7-18); CALCIUM 9.4 MG/DL (8.5-10.1); CHLORIDE 105 MMOL/L (99-107); CREATININE 1.03 MG/DL (0.40-0.90); GLUCOSE 232 MG/DL (70-104); POTASSIUM 4.7 MMOL/L (3.5-5.1); SODIUM 141 MMOL/L (135-145); TOTAL CARBON DIOXIDE 33.4 MMOL/L (24-32); TOTAL PROTEIN 8.6 G/DL (6.4-8.2); eCRCL 72 ML/MIN; eGFR 58 ML/MIN
[2023-11-24 13:26] LABS: ALANINE AMINOTRANSFERASE < 6 U/L (12-78)
[2023-11-24 13:46] LABS: PREOP URINE HCG NEGATIVE (NEGATIVE)
[2023-11-24] MEDS: CefTRIAXone/D5W-Rocephin 1gm 50 ML IV ONE (22:36)
[2023-11-24] MEDS: mineral oil 133ml enema RC ONE (23:00)
[2023-11-25 04:00] VITALS: BP 141/85; PULSE 99; RESP 20; TEMP 101; O2SAT 98
[2023-11-25 06:09] LABS: BASOPHILS # (AUTO) 0.1 X10'3 (0-0.2); BASOPHILS % (AUTO) 0.7 % (0-1); EOSINOPHILS # (AUTO) 0.4 X10'3 (0-0.9); EOSINOPHILS % (AUTO) 2.8 % (0-6); HEMATOCRIT 42.2 % (35.0-45.0); HEMOGLOBIN 13.9 g/dl (12.0-16.0); LYMPHOCYTES # (AUTO) 3.4 X10'3 (1.1-4.8); LYMPHOCYTES % (AUTO) 23.1 % (21-51); MEAN CORPUSCULAR HEMOGLOBIN 27.7 PG (27.0-31.0); MEAN CORPUSCULAR HGB CONC 32.9 g/dL (33.0-36.5); MEAN CORPUSCULAR VOLUME 84.4 FL (78-98); MEAN PLATELET VOLUME 9.4 FL (7.4-10.4); MONOCYTES # (AUTO) 0.9 X10'3 (0-0.9); MONOCYTES % (AUTO) 6.1 % (2-12); NEUTROPHILS # (AUTO) 9.9 X10'3 (1.8-7.7); NEUTROPHILS % (AUTO) 67.3 % (42-75); PLATELET COUNT 246 X10'3 (140-440); RED BLOOD COUNT 5.01 X10'6 (4.20-5.60); RED CELL DISTRIBUTION WIDTH 14.1 % (11.5-14.5); WHITE BLOOD COUNT 14.6 X10'3 (4.5-11.0)
[2023-11-25 06:26] LABS: ALANINE AMINOTRANSFERASE 17 U/L (12-78); ALBUMIN 2.9 G/DL (3.4-5.0); ALBUMIN/GLOBULIN RATIO 0.5 (1.1-1.5); ALKALINE PHOSPHATASE 49 IU/L (46-116); ANION GAP 8 (8-16); ASPARTATE AMINO TRANSFERASE 17 U/L (10-37); BILIRUBIN,TOTAL 0.6 MG/DL (0.1-1.0); BLOOD UREA NITROGEN 37 MG/DL (7-18); BUN/CREATININE RATIO 34.6 (10.0-20.0); CALCIUM 9.5 MG/DL (8.5-10.1); CHLORIDE 103 MMOL/L (99-107); CREATININE 1.07 MG/DL (0.40-0.90); GLUCOSE 250 MG/DL (70-104); POTASSIUM 4.7 MMOL/L (3.5-5.1); PREALBUMIN 27.6 MG/DL (19-36); SODIUM 142 MMOL/L (135-145); TOTAL CARBON DIOXIDE 30.8 MMOL/L (24-32); TOTAL PROTEIN 8.2 G/DL (6.4-8.2); eCRCL 69 ML/MIN; eGFR 55 ML/MIN
[2023-11-25] MEDS: ibuprofen 100 MG/5 ML oral susp PEG ONE (07:16)
[2023-11-25 07:46] VITALS: RESP 16; O2SAT 98
[2023-11-25] MEDS: CefTRIAXone/D5W-Rocephin 1gm 50 ML IV SCH (08:52)
[2023-11-25 09:31] VITALS: BP 137/67; PULSE 93; RESP 14; TEMP 97.8; O2SAT 98
[2023-11-25 16:00] VITALS: BP_SYST 101; BP_SYST 106; BP_DIAS 55; BP_DIAS 56; PULSE 78; PULSE 85; RESP 15; RESP 16; TEMP 97.8; TEMP 99.7; O2SAT 95; O2SAT 97
[2023-11-25] MEDS: mineral oil 133ml enema RC PRN (16:38)
[2023-11-25 20:00] VITALS: BP 106/56; PULSE 78; RESP 14; TEMP 97.8; O2SAT 97
[2023-11-26] VITALS: BP 104/60; PULSE 78; RESP 16; TEMP 97.4; O2SAT 98
[2023-11-26 06:00] VITALS: BP 124/59; PULSE 74; RESP 16; TEMP 98.3; O2SAT 97
[2023-11-26 07:50] LABS: BASOPHILS # (AUTO) 0.1 X10'3 (0-0.2); BASOPHILS % (AUTO) 0.4 % (0-1); EOSINOPHILS # (AUTO) 0.4 X10'3 (0-0.9); HEMATOCRIT 40.7 % (35.0-45.0); HEMOGLOBIN 13.2 g/dl (12.0-16.0); LYMPHOCYTES % (AUTO) 28.8 % (21-51); MEAN CORPUSCULAR HEMOGLOBIN 27.3 PG (27.0-31.0); MEAN CORPUSCULAR HGB CONC 32.5 g/dL (33.0-36.5); MEAN CORPUSCULAR VOLUME 84.2 FL (78-98); MEAN PLATELET VOLUME 9.3 FL (7.4-10.4); MONOCYTES # (AUTO) 0.9 X10'3 (0-0.9); MONOCYTES % (AUTO) 6.7 % (2-12); NEUTROPHILS # (AUTO) 8.4 X10'3 (1.8-7.7); NEUTROPHILS % (AUTO) 61.1 % (42-75); PLATELET COUNT 219 X10'3 (140-440); RED BLOOD COUNT 4.83 X10'6 (4.20-5.60); WHITE BLOOD COUNT 13.8 X10'3 (4.5-11.0)
[2023-11-26 08:09] LABS: ALANINE AMINOTRANSFERASE 20 U/L (12-78); ALBUMIN 2.7 G/DL (3.4-5.0); ALBUMIN/GLOBULIN RATIO 0.5 (1.1-1.5); ALKALINE PHOSPHATASE 51 IU/L (46-116); ANION GAP 5 (8-16); ASPARTATE AMINO TRANSFERASE 19 U/L (10-37); BILIRUBIN,TOTAL 0.6 MG/DL (0.1-1.0); BLOOD UREA NITROGEN 46 MG/DL (7-18); BUN/CREATININE RATIO 51.1 (10.0-20.0); CALCIUM 9.1 MG/DL (8.5-10.1); CHLORIDE 103 MMOL/L (99-107); GLUCOSE 116 MG/DL (70-104); MAGNESIUM 2.5 MG/DL (1.5-2.4); PHOSPHORUS 5.6 MG/DL (2.3-4.5); POTASSIUM 4.3 MMOL/L (3.5-5.1); SODIUM 142 MMOL/L (135-145); TOTAL CARBON DIOXIDE 33.6 MMOL/L (24-32); TOTAL PROTEIN 7.7 G/DL (6.4-8.2); eCRCL 82 ML/MIN; eGFR 68 ML/MIN
[2023-11-26 10:00] VITALS: BP 132/70; PULSE 94; RESP 11; TEMP 99.2; O2SAT 96
[2023-11-26] MEDS: lactulose 20gm/30ml cup PEG SCH (14:15)
[2023-11-26 18:00] VITALS: BP 138/76; PULSE 91; RESP 22; TEMP 99.1; O2SAT 97
[2023-11-26 20:00] VITALS: RESP 22; O2SAT 97
[2023-11-26] MEDS: polyethylene glycol 3350 17gm powd pack PEG SCH (20:25)
[2023-11-26 22:00] VITALS: BP 121/68; PULSE 91; RESP 16; TEMP 98.6; O2SAT 98
[2023-11-27 05:00] VITALS: BP 141/76; PULSE 97; RESP 16; TEMP 102.2; O2SAT 97
[2023-11-27 07:25] LABS: BASOPHILS # (AUTO) 0.1 X10'3 (0-0.2); BASOPHILS % (AUTO) 0.5 % (0-1); EOSINOPHILS # (AUTO) 0.3 X10'3 (0-0.9); EOSINOPHILS % (AUTO) 1.9 % (0-6); HEMATOCRIT 42.2 % (35.0-45.0); HEMOGLOBIN 13.8 g/dl (12.0-16.0); LYMPHOCYTES # (AUTO) 3.4 X10'3 (1.1-4.8); LYMPHOCYTES % (AUTO) 23.1 % (21-51); MEAN CORPUSCULAR HEMOGLOBIN 27.5 PG (27.0-31.0); MEAN CORPUSCULAR HGB CONC 32.6 g/dL (33.0-36.5); MEAN CORPUSCULAR VOLUME 84.3 FL (78-98); MEAN PLATELET VOLUME 9.9 FL (7.4-10.4); MONOCYTES # (AUTO) 1.2 X10'3 (0-0.9); MONOCYTES % (AUTO) 7.9 % (2-12); NEUTROPHILS # (AUTO) 9.8 X10'3 (1.8-7.7); NEUTROPHILS % (AUTO) 66.6 % (42-75); PLATELET COUNT 225 X10'3 (140-440); RED BLOOD COUNT 5.01 X10'6 (4.20-5.60); RED CELL DISTRIBUTION WIDTH 14.3 % (11.5-14.5); WHITE BLOOD COUNT 14.7 X10'3 (4.5-11.0)
[2023-11-27 07:40] LABS: ALANINE AMINOTRANSFERASE 42 U/L (12-78); ALBUMIN 2.9 G/DL (3.4-5.0); ALBUMIN/GLOBULIN RATIO 0.5 (1.1-1.5); ALKALINE PHOSPHATASE 60 IU/L (46-116); ANION GAP 4 (8-16); ASPARTATE AMINO TRANSFERASE 44 U/L (10-37); BILIRUBIN,TOTAL 0.6 MG/DL (0.1-1.0); BLOOD UREA NITROGEN 45 MG/DL (7-18); BUN/CREATININE RATIO 42.5 (10.0-20.0); CHLORIDE 104 MMOL/L (99-107); CREATININE 1.06 MG/DL (0.40-0.90); GLUCOSE 135 MG/DL (70-104); MAGNESIUM 2.7 MG/DL (1.5-2.4); PHOSPHORUS 5.6 MG/DL (2.3-4.5); POTASSIUM 4.5 MMOL/L (3.5-5.1); SODIUM 144 MMOL/L (135-145); TOTAL CARBON DIOXIDE 35.7 MMOL/L (24-32); TOTAL PROTEIN 8.2 G/DL (6.4-8.2); eCRCL 70 ML/MIN; eGFR 56 ML/MIN
[2023-11-27 08:59] VITALS: TEMP 98.2
[2023-11-27 10:00] VITALS: BP 110/73; PULSE 101; RESP 15; TEMP 99; O2SAT 100
[2023-11-27 11:48] LABS: BILIRUBIN,URINE NEGATIVE (Neg); CLARITY,URINE SLIGHTLY CLOUDY (Clear); COLOR,URINE YELLOW (Yellow); GLUCOSE, URINE NEGATIVE (Neg); KETONES,URINE TRACE mg/dl (Neg); LEUKOCYTE ESTERASE ,URINE NEGATIVE (Neg); NITRITES, URINE NEGATIVE (Neg); OCCULT BLOOD,URINE NEGATIVE (Neg); PH,URINE 7.5 (4.8-8.0); PROTEIN,URINE NEGATIVE (Neg)
[2023-11-27 11:49] LABS: UA COLLECTION TYPE NON-SPECIFIED
[2023-11-27 12:01] LABS: AMORPHOUS URATES 2+
[2023-11-27 12:02] LABS: BACTERIA,URINE FEW /HPF (Neg); HYALINE CASTS 0-3 /LPF (NEGATIVE); RBC,URINE NONE SEEN /HPF (0-2); WBC,URINE 0-4 /HPF (0-4)
[2023-11-27 12:03] LABS: SQUAMOUS EPITHELIAL CELL,UR FEW /LPF (FEW)
[2023-11-27 18:00] VITALS: BP 97/65; PULSE 85; RESP 18; TEMP 99; O2SAT 97
[2023-11-27 20:00] VITALS: RESP 18; O2SAT 97
[2023-11-27 22:00] VITALS: BP 123/75; PULSE 92; RESP 24; TEMP 98.3; O2SAT 96
[2023-11-28] MEDS: normal saline 250ml IV soln 250 ML IV ONE (05:32)
[2023-11-28 06:00] VITALS: BP 85/58; PULSE 80; RESP 16; TEMP 98; O2SAT 99
[2023-11-28 06:55] LABS: BASOPHILS # (AUTO) 0.1 X10'3 (0-0.2); BASOPHILS % (AUTO) 0.5 % (0-1); EOSINOPHILS # (AUTO) 0.3 X10'3 (0-0.9); EOSINOPHILS % (AUTO) 2.1 % (0-6); HEMATOCRIT 40.6 % (35.0-45.0); HEMOGLOBIN 12.9 g/dl (12.0-16.0); LYMPHOCYTES # (AUTO) 4.2 X10'3 (1.1-4.8); LYMPHOCYTES % (AUTO) 29.3 % (21-51); MEAN CORPUSCULAR HEMOGLOBIN 27.3 PG (27.0-31.0); MEAN CORPUSCULAR HGB CONC 31.9 g/dL (33.0-36.5); MEAN CORPUSCULAR VOLUME 85.5 FL (78-98); MEAN PLATELET VOLUME 10.3 FL (7.4-10.4); MONOCYTES # (AUTO) 0.9 X10'3 (0-0.9); MONOCYTES % (AUTO) 6.5 % (2-12); NEUTROPHILS # (AUTO) 8.9 X10'3 (1.8-7.7); NEUTROPHILS % (AUTO) 61.6 % (42-75); PLATELET COUNT 209 X10'3 (140-440); RED BLOOD COUNT 4.75 X10'6 (4.20-5.60); RED CELL DISTRIBUTION WIDTH 14.7 % (11.5-14.5); WHITE BLOOD COUNT 14.4 X10'3 (4.5-11.0)
[2023-11-28 07:22] LABS: ALANINE AMINOTRANSFERASE 57 U/L (12-78); ALBUMIN 2.8 G/DL (3.4-5.0); ALBUMIN/GLOBULIN RATIO 0.6 (1.1-1.5); ALKALINE PHOSPHATASE 62 IU/L (46-116); ANION GAP 7 (8-16); ASPARTATE AMINO TRANSFERASE 49 U/L (10-37); BILIRUBIN,TOTAL 0.6 MG/DL (0.1-1.0); BLOOD UREA NITROGEN 50 MG/DL (7-18); BUN/CREATININE RATIO 46.3 (10.0-20.0); CALCIUM 9.1 MG/DL (8.5-10.1); CHLORIDE 104 MMOL/L (99-107); CREATININE 1.08 MG/DL (0.40-0.90); GLUCOSE 187 MG/DL (70-104); MAGNESIUM 2.8 MG/DL (1.5-2.4); PHOSPHORUS 5.6 MG/DL (2.3-4.5); POTASSIUM 4.2 MMOL/L (3.5-5.1); SODIUM 144 MMOL/L (135-145); TOTAL PROTEIN 7.8 G/DL (6.4-8.2); eCRCL 69 ML/MIN; eGFR 55 ML/MIN
[2023-11-28 08:00] VITALS: RESP 16; O2SAT 99
[2023-11-28 08:30] VITALS: RESP 10; O2SAT 98
[2023-11-28] MEDS: mineral oil 133ml enema RC PRN (11:09)
[2023-11-28] MEDS: LidoCAINE 2% Topical Jelly 11mL syringe (UROJET) TOP ONE (14:30)
[2023-11-28 21:30] VITALS: BP 132/58; RESP 16; TEMP 98.5; O2SAT 98
[2023-11-29 03:03] VITALS: TEMP 98.9
[2023-11-29 08:00] VITALS: RESP 16; O2SAT 96
[2023-11-29 08:05] LABS: BASOPHILS # (AUTO) 0.1 X10'3 (0-0.2); BASOPHILS % (AUTO) 0.4 % (0-1); EOSINOPHILS # (AUTO) 0.4 X10'3 (0-0.9); EOSINOPHILS % (AUTO) 2.5 % (0-6); HEMATOCRIT 38.5 % (35.0-45.0); HEMOGLOBIN 12.6 g/dl (12.0-16.0); LYMPHOCYTES # (AUTO) 3.4 X10'3 (1.1-4.8); LYMPHOCYTES % (AUTO) 22.5 % (21-51); MEAN CORPUSCULAR HEMOGLOBIN 27.9 PG (27.0-31.0); MEAN CORPUSCULAR HGB CONC 32.8 g/dL (33.0-36.5); MEAN CORPUSCULAR VOLUME 85.2 FL (78-98); MEAN PLATELET VOLUME 10.1 FL (7.4-10.4); MONOCYTES % (AUTO) 6.8 % (2-12); NEUTROPHILS # (AUTO) 10.2 X10'3 (1.8-7.7); NEUTROPHILS % (AUTO) 67.8 % (42-75); PLATELET COUNT 197 X10'3 (140-440); RED BLOOD COUNT 4.52 X10'6 (4.20-5.60); RED CELL DISTRIBUTION WIDTH 14.6 % (11.5-14.5); WHITE BLOOD COUNT 15.1 X10'3 (4.5-11.0)
[2023-11-29 08:35] LABS: ALANINE AMINOTRANSFERASE 69 U/L (12-78); ALBUMIN 2.8 G/DL (3.4-5.0); ALBUMIN/GLOBULIN RATIO 0.5 (1.1-1.5); ALKALINE PHOSPHATASE 72 IU/L (46-116); ANION GAP 4 (8-16); ASPARTATE AMINO TRANSFERASE 52 U/L (10-37); BILIRUBIN,TOTAL 0.6 MG/DL (0.1-1.0); BLOOD UREA NITROGEN 51 MG/DL (7-18); CALCIUM 8.9 MG/DL (8.5-10.1); CHLORIDE 105 MMOL/L (99-107); GLUCOSE 185 MG/DL (70-104); MAGNESIUM 2.8 MG/DL (1.5-2.4); PHOSPHORUS 5.2 MG/DL (2.3-4.5); POTASSIUM 4.4 MMOL/L (3.5-5.1); PREALBUMIN 38.7 MG/DL (19-36); SODIUM 145 MMOL/L (135-145); TOTAL CARBON DIOXIDE 35.8 MMOL/L (24-32); TOTAL PROTEIN 7.9 G/DL (6.4-8.2); eCRCL 74 ML/MIN; eGFR 60 ML/MIN
[2023-11-29 18:00] VITALS: BP 131/69; PULSE 85; RESP 16; TEMP 100.1; O2SAT 98
[2023-11-29 22:00] VITALS: BP 123/74; PULSE 94; RESP 19; TEMP 99.6; O2SAT 97
[2023-11-30 06:49] LABS: ALANINE AMINOTRANSFERASE 55 U/L (12-78); ALBUMIN 2.7 G/DL (3.4-5.0); ALBUMIN/GLOBULIN RATIO 0.5 (1.1-1.5); ALKALINE PHOSPHATASE 64 IU/L (46-116); ANION GAP 6 (8-16); ASPARTATE AMINO TRANSFERASE 32 U/L (10-37); BILIRUBIN,TOTAL 0.6 MG/DL (0.1-1.0); BLOOD UREA NITROGEN 47 MG/DL (7-18); BUN/CREATININE RATIO 52.2 (10.0-20.0); CALCIUM 9.2 MG/DL (8.5-10.1); CHLORIDE 107 MMOL/L (99-107); GLUCOSE 124 MG/DL (70-104); MAGNESIUM 2.6 MG/DL (1.5-2.4); PHOSPHORUS 4.1 MG/DL (2.3-4.5); POTASSIUM 3.7 MMOL/L (3.5-5.1); SODIUM 147 MMOL/L (135-145); TOTAL CARBON DIOXIDE 34.5 MMOL/L (24-32); TOTAL PROTEIN 7.9 G/DL (6.4-8.2); eCRCL 82 ML/MIN; eGFR 68 ML/MIN
[2023-11-30 18:00] VITALS: BP 126/75; PULSE 93; RESP 16; TEMP 99; O2SAT 97
[2023-11-30 22:00] VITALS: BP 117/72; PULSE 86; RESP 15; TEMP 98.2; O2SAT 97
[2023-12-01 06:00] VITALS: BP 121/75; PULSE 83; RESP 18; TEMP 98.8; O2SAT 98
[2023-12-01 08:00] VITALS: RESP 15; O2SAT 94
[2023-12-01 08:06] LABS: BASOPHILS # (AUTO) 0.1 X10'3 (0-0.2); BASOPHILS % (AUTO) 0.6 % (0-1); EOSINOPHILS # (AUTO) 0.2 X10'3 (0-0.9); EOSINOPHILS % (AUTO) 1.4 % (0-6); HEMATOCRIT 38.6 % (35.0-45.0); HEMOGLOBIN 12.5 g/dl (12.0-16.0); LYMPHOCYTES # (AUTO) 3.3 X10'3 (1.1-4.8); LYMPHOCYTES % (AUTO) 21.4 % (21-51); MEAN CORPUSCULAR HEMOGLOBIN 27.7 PG (27.0-31.0); MEAN CORPUSCULAR HGB CONC 32.5 g/dL (33.0-36.5); MEAN CORPUSCULAR VOLUME 85.3 FL (78-98); MONOCYTES # (AUTO) 0.9 X10'3 (0-0.9); NEUTROPHILS # (AUTO) 10.8 X10'3 (1.8-7.7); NEUTROPHILS % (AUTO) 70.6 % (42-75); PLATELET COUNT 193 X10'3 (140-440); RED BLOOD COUNT 4.52 X10'6 (4.20-5.60); RED CELL DISTRIBUTION WIDTH 14.7 % (11.5-14.5); WHITE BLOOD COUNT 15.3 X10'3 (4.5-11.0)
[2023-12-01 08:46] LABS: ALANINE AMINOTRANSFERASE 42 U/L (12-78); ALBUMIN 2.8 G/DL (3.4-5.0); ALBUMIN/GLOBULIN RATIO 0.5 (1.1-1.5); ALKALINE PHOSPHATASE 63 IU/L (46-116); ANION GAP 7 (8-16); ASPARTATE AMINO TRANSFERASE 26 U/L (10-37); BILIRUBIN,TOTAL 0.6 MG/DL (0.1-1.0); BLOOD UREA NITROGEN 46 MG/DL (7-18); BUN/CREATININE RATIO 55.4 (10.0-20.0); CHLORIDE 107 MMOL/L (99-107); CREATININE 0.83 MG/DL (0.40-0.90); GLUCOSE 108 MG/DL (70-104); POTASSIUM 3.5 MMOL/L (3.5-5.1); SODIUM 149 MMOL/L (135-145); TOTAL CARBON DIOXIDE 35.2 MMOL/L (24-32); TOTAL PROTEIN 7.9 G/DL (6.4-8.2); eCRCL 89 ML/MIN; eGFR 74 ML/MIN
[2023-12-01 16:52] VITALS: RESP 20; O2SAT 97
[2023-12-01 22:00] VITALS: BP 149/83; PULSE 84; RESP 16; TEMP 98.5; O2SAT 97
[2023-12-02 03:23] LABS: BASOPHILS # (AUTO) 0.1 X10'3 (0-0.2); BASOPHILS % (AUTO) 0.7 % (0-1); EOSINOPHILS # (AUTO) 0.2 X10'3 (0-0.9); EOSINOPHILS % (AUTO) 1.2 % (0-6); HEMATOCRIT 38.4 % (35.0-45.0); HEMOGLOBIN 12.4 g/dl (12.0-16.0); LYMPHOCYTES # (AUTO) 2.9 X10'3 (1.1-4.8); LYMPHOCYTES % (AUTO) 19.3 % (21-51); MEAN CORPUSCULAR HEMOGLOBIN 27.5 PG (27.0-31.0); MEAN CORPUSCULAR HGB CONC 32.2 g/dL (33.0-36.5); MEAN CORPUSCULAR VOLUME 85.6 FL (78-98); MEAN PLATELET VOLUME 10.6 FL (7.4-10.4); MONOCYTES % (AUTO) 6.5 % (2-12); NEUTROPHILS % (AUTO) 72.3 % (42-75); PLATELET COUNT 204 X10'3 (140-440); RED BLOOD COUNT 4.49 X10'6 (4.20-5.60); RED CELL DISTRIBUTION WIDTH 14.4 % (11.5-14.5); WHITE BLOOD COUNT 15.2 X10'3 (4.5-11.0)
[2023-12-02 03:51] LABS: ALANINE AMINOTRANSFERASE 33 U/L (12-78); ALBUMIN 2.7 G/DL (3.4-5.0); ALBUMIN/GLOBULIN RATIO 0.5 (1.1-1.5); ALKALINE PHOSPHATASE 53 IU/L (46-116); ANION GAP 8 (8-16); ASPARTATE AMINO TRANSFERASE 19 U/L (10-37); BILIRUBIN,TOTAL 0.5 MG/DL (0.1-1.0); BLOOD UREA NITROGEN 41 MG/DL (7-18); BUN/CREATININE RATIO 49.4 (10.0-20.0); CALCIUM 9.6 MG/DL (8.5-10.1); CHLORIDE 110 MMOL/L (99-107); CREATININE 0.83 MG/DL (0.40-0.90); GLUCOSE 121 MG/DL (70-104); POTASSIUM 3.4 MMOL/L (3.5-5.1); SODIUM 152 MMOL/L (135-145); TOTAL CARBON DIOXIDE 33.8 MMOL/L (24-32); TOTAL PROTEIN 8.5 G/DL (6.4-8.2); eCRCL 89 ML/MIN; eGFR 74 ML/MIN
[2023-12-02 06:00] VITALS: BP 123/68; PULSE 78; RESP 18; TEMP 98.7; O2SAT 99
[2023-12-02] MEDS: dextrose 5%-water 1,000 ML IV SCH (08:17)
[2023-12-02 10:00] VITALS: BP 108/60; PULSE 76; RESP 23; TEMP 99.5; O2SAT 98
[2023-12-02 18:00] VITALS: BP 106/67; PULSE 78; RESP 16; TEMP 99.9; O2SAT 100
[2023-12-02] MEDS: acetaminophen 325mg/10.15ml oral unit dose solution GT PRN (19:38)
[2023-12-02 20:00] VITALS: RESP 18; O2SAT 99
[2023-12-02 22:00] VITALS: BP 124/66; PULSE 78; RESP 16; TEMP 98; O2SAT 98
[2023-12-03 06:00] VITALS: BP 134/74; PULSE 75; RESP 18; TEMP 98.6; O2SAT 99
[2023-12-03 08:48] LABS: BASOPHILS # (AUTO) 0.1 X10'3 (0-0.2); BASOPHILS % (AUTO) 0.6 % (0-1); EOSINOPHILS # (AUTO) 0.4 X10'3 (0-0.9); HEMATOCRIT 35.3 % (35.0-45.0); HEMOGLOBIN 11.4 g/dl (12.0-16.0); LYMPHOCYTES # (AUTO) 3.1 X10'3 (1.1-4.8); LYMPHOCYTES % (AUTO) 23.5 % (21-51); MEAN CORPUSCULAR HEMOGLOBIN 27.2 PG (27.0-31.0); MEAN CORPUSCULAR HGB CONC 32.4 g/dL (33.0-36.5); MEAN CORPUSCULAR VOLUME 84.1 FL (78-98); MONOCYTES # (AUTO) 0.7 X10'3 (0-0.9); MONOCYTES % (AUTO) 5.7 % (2-12); NEUTROPHILS # (AUTO) 8.9 X10'3 (1.8-7.7); NEUTROPHILS % (AUTO) 67.2 % (42-75); PLATELET COUNT 187 X10'3 (140-440); RED CELL DISTRIBUTION WIDTH 14.1 % (11.5-14.5); WHITE BLOOD COUNT 13.2 X10'3 (4.5-11.0)
[2023-12-03 09:05] LABS: CHLORIDE 105 MMOL/L (99-107); POTASSIUM 3.5 MMOL/L (3.5-5.1); SODIUM 145 MMOL/L (135-145)
[2023-12-03 09:38] LABS: ALANINE AMINOTRANSFERASE 45 U/L (12-78); ALBUMIN 2.2 G/DL (3.4-5.0); ALBUMIN/GLOBULIN RATIO 0.5 (1.1-1.5); ALKALINE PHOSPHATASE 56 IU/L (46-116); ANION GAP 7 (8-16); ASPARTATE AMINO TRANSFERASE 36 U/L (10-37); BILIRUBIN,TOTAL 0.5 MG/DL (0.1-1.0); BLOOD UREA NITROGEN 35 MG/DL (7-18); CREATININE 0.66 MG/DL (0.40-0.90); GLUCOSE 80 MG/DL (70-104); TOTAL CARBON DIOXIDE 33.2 MMOL/L (24-32); eCRCL 112 ML/MIN; eGFR > 90 ML/MIN
[2023-12-03 10:00] VITALS: BP 124/64; PULSE 67; RESP 18; TEMP 97.3; O2SAT 100
[2023-12-03 18:00] VITALS: BP 127/68; PULSE 66; RESP 17; TEMP 97.1; O2SAT 98
[2023-12-03 20:00] VITALS: RESP 17; O2SAT 97
[2023-12-03 22:00] VITALS: BP 118/75; PULSE 64; RESP 16; TEMP 98.2; O2SAT 99
[2023-12-04] VITALS (7 sets, daily range): BP systolic 103–144; BP diastolic 53–86; PULSE 67–78; RESP 14–19; TEMP 97.2–98; O2SAT 93–99
[2023-12-04 06:48] LABS: BASOPHILS # (AUTO) 0.1 X10'3 (0-0.2); BASOPHILS % (AUTO) 0.5 % (0-1); EOSINOPHILS # (AUTO) 0.5 X10'3 (0-0.9); EOSINOPHILS % (AUTO) 4.3 % (0-6); HEMATOCRIT 37.7 % (35.0-45.0); HEMOGLOBIN 12.5 g/dl (12.0-16.0); LYMPHOCYTES # (AUTO) 3.1 X10'3 (1.1-4.8); LYMPHOCYTES % (AUTO) 25.7 % (21-51); MEAN CORPUSCULAR HEMOGLOBIN 27.4 PG (27.0-31.0); MEAN CORPUSCULAR HGB CONC 33.1 g/dL (33.0-36.5); MEAN CORPUSCULAR VOLUME 82.8 FL (78-98); MEAN PLATELET VOLUME 10.4 FL (7.4-10.4); MONOCYTES # (AUTO) 0.6 X10'3 (0-0.9); NEUTROPHILS # (AUTO) 7.7 X10'3 (1.8-7.7); NEUTROPHILS % (AUTO) 64.5 % (42-75); PLATELET COUNT 192 X10'3 (140-440); RED BLOOD COUNT 4.56 X10'6 (4.20-5.60); RED CELL DISTRIBUTION WIDTH 13.7 % (11.5-14.5)
[2023-12-04 06:58] LABS: ALANINE AMINOTRANSFERASE 40 U/L (12-78); ALBUMIN 2.3 G/DL (3.4-5.0); ALBUMIN/GLOBULIN RATIO 0.4 (1.1-1.5); ALKALINE PHOSPHATASE 63 IU/L (46-116); ANION GAP 6 (8-16); ASPARTATE AMINO TRANSFERASE 29 U/L (10-37); BILIRUBIN,TOTAL 0.5 MG/DL (0.1-1.0); BLOOD UREA NITROGEN 28 MG/DL (7-18); BUN/CREATININE RATIO 42.4 (10.0-20.0); CALCIUM 9.1 MG/DL (8.5-10.1); CHLORIDE 101 MMOL/L (99-107); CREATININE 0.66 MG/DL (0.40-0.90); GLUCOSE 88 MG/DL (70-104); POTASSIUM 3.5 MMOL/L (3.5-5.1); SODIUM 141 MMOL/L (135-145); TOTAL PROTEIN 7.5 G/DL (6.4-8.2); eCRCL 112 ML/MIN; eGFR > 90 ML/MIN
[2023-12-05 06:27] VITALS: BP 129/76; PULSE 72; RESP 20; TEMP 97.7; O2SAT 97
[2023-12-05 06:44] LABS: BASOPHILS # (AUTO) 0.1 X10'3 (0-0.2); BASOPHILS % (AUTO) 0.5 % (0-1); EOSINOPHILS # (AUTO) 0.5 X10'3 (0-0.9); EOSINOPHILS % (AUTO) 4.5 % (0-6); HEMOGLOBIN 11.8 g/dl (12.0-16.0); LYMPHOCYTES # (AUTO) 3.1 X10'3 (1.1-4.8); LYMPHOCYTES % (AUTO) 26.7 % (21-51); MEAN CORPUSCULAR HEMOGLOBIN 27.2 PG (27.0-31.0); MEAN CORPUSCULAR HGB CONC 32.7 g/dL (33.0-36.5); MEAN CORPUSCULAR VOLUME 83.3 FL (78-98); MEAN PLATELET VOLUME 9.9 FL (7.4-10.4); MONOCYTES # (AUTO) 0.6 X10'3 (0-0.9); MONOCYTES % (AUTO) 5.4 % (2-12); NEUTROPHILS # (AUTO) 7.3 X10'3 (1.8-7.7); NEUTROPHILS % (AUTO) 62.9 % (42-75); PLATELET COUNT 193 X10'3 (140-440); RED BLOOD COUNT 4.32 X10'6 (4.20-5.60); RED CELL DISTRIBUTION WIDTH 13.9 % (11.5-14.5); WHITE BLOOD COUNT 11.5 X10'3 (4.5-11.0)
[2023-12-05 06:53] LABS: ALANINE AMINOTRANSFERASE 34 U/L (12-78); ALBUMIN 2.2 G/DL (3.4-5.0); ALBUMIN/GLOBULIN RATIO 0.5 (1.1-1.5); ALKALINE PHOSPHATASE 61 IU/L (46-116); ANION GAP 6 (8-16); ASPARTATE AMINO TRANSFERASE 23 U/L (10-37); BILIRUBIN,TOTAL 0.4 MG/DL (0.1-1.0); BLOOD UREA NITROGEN 31 MG/DL (7-18); BUN/CREATININE RATIO 41.9 (10.0-20.0); CALCIUM 8.8 MG/DL (8.5-10.1); CHLORIDE 103 MMOL/L (99-107); CREATININE 0.74 MG/DL (0.40-0.90); GLUCOSE 103 MG/DL (70-104); POTASSIUM 3.5 MMOL/L (3.5-5.1); SODIUM 143 MMOL/L (135-145); TOTAL CARBON DIOXIDE 34.4 MMOL/L (24-32); TOTAL PROTEIN 6.9 G/DL (6.4-8.2); eCRCL 100 ML/MIN; eGFR 85 ML/MIN
[2023-12-05 08:30] VITALS: RESP 18; O2SAT 95
[2023-12-05 09:07] VITALS: BP 143/76; PULSE 83; RESP 16
[2023-12-05 18:00] VITALS: BP 121/70; PULSE 76; RESP 17; TEMP 97.3; O2SAT 97
[2023-12-05 20:00] VITALS: RESP 17; O2SAT 97
[2023-12-05 22:00] VITALS: BP 111/65; PULSE 57; RESP 14; TEMP 97.7; O2SAT 94
[2023-12-06 05:40] LABS: BASOPHILS # (AUTO) 0.1 X10'3 (0-0.2); BASOPHILS % (AUTO) 0.5 % (0-1); EOSINOPHILS # (AUTO) 0.4 X10'3 (0-0.9); EOSINOPHILS % (AUTO) 3.8 % (0-6); HEMATOCRIT 34.8 % (35.0-45.0); HEMOGLOBIN 11.5 g/dl (12.0-16.0); LYMPHOCYTES # (AUTO) 3.6 X10'3 (1.1-4.8); LYMPHOCYTES % (AUTO) 30.4 % (21-51); MEAN CORPUSCULAR HEMOGLOBIN 27.7 PG (27.0-31.0); MEAN CORPUSCULAR HGB CONC 33.1 g/dL (33.0-36.5); MEAN CORPUSCULAR VOLUME 83.7 FL (78-98); MEAN PLATELET VOLUME 9.9 FL (7.4-10.4); MONOCYTES # (AUTO) 0.7 X10'3 (0-0.9); MONOCYTES % (AUTO) 5.7 % (2-12); NEUTROPHILS % (AUTO) 59.6 % (42-75); PLATELET COUNT 198 X10'3 (140-440); RED BLOOD COUNT 4.16 X10'6 (4.20-5.60); RED CELL DISTRIBUTION WIDTH 13.9 % (11.5-14.5); WHITE BLOOD COUNT 11.8 X10'3 (4.5-11.0)
[2023-12-06 05:48] LABS: ALANINE AMINOTRANSFERASE 29 U/L (12-78); ALBUMIN 2.2 G/DL (3.4-5.0); ALBUMIN/GLOBULIN RATIO 0.4 (1.1-1.5); ALKALINE PHOSPHATASE 54 IU/L (46-116); ANION GAP 8 (8-16); ASPARTATE AMINO TRANSFERASE 22 U/L (10-37); BILIRUBIN,TOTAL 0.4 MG/DL (0.1-1.0); BLOOD UREA NITROGEN 29 MG/DL (7-18); BUN/CREATININE RATIO 39.7 (10.0-20.0); CALCIUM 8.9 MG/DL (8.5-10.1); CHLORIDE 103 MMOL/L (99-107); CREATININE 0.73 MG/DL (0.40-0.90); GLUCOSE 100 MG/DL (70-104); POTASSIUM 3.8 MMOL/L (3.5-5.1); SODIUM 143 MMOL/L (135-145); TOTAL CARBON DIOXIDE 32.4 MMOL/L (24-32); TOTAL PROTEIN 7.1 G/DL (6.4-8.2); eCRCL 102 ML/MIN; eGFR 86 ML/MIN
[2023-12-06 06:00] VITALS: BP 125/74; PULSE 94; RESP 16; TEMP 96.4; O2SAT 96
[2023-12-06 10:00] VITALS: BP 138/70; PULSE 79; RESP 20; TEMP 97.1; O2SAT 95
[2023-12-06 18:00] VITALS: BP 144/86; PULSE 86; RESP 16; TEMP 97.1; O2SAT 92
[2023-12-06 20:00] VITALS: RESP 16; O2SAT 92
[2023-12-06 22:00] VITALS: BP 129/88; PULSE 77; RESP 18; TEMP 97.1; O2SAT 97
[2023-12-07 07:00] VITALS: BP 162/80; PULSE 82; RESP 15; TEMP 97.2; O2SAT 95
[2023-12-07 12:21] VITALS: BP 115/67; PULSE 71; RESP 18; TEMP 99; O2SAT 91
[2023-12-07 12:25] VITALS: BP 112/47; PULSE 101; RESP 20; TEMP 98.3; O2SAT 90
[2023-12-07 18:00] VITALS: BP 149/94; PULSE 81; RESP 18; TEMP 97.8; O2SAT 96
[2023-12-07 20:00] VITALS: RESP 18; O2SAT 96
[2023-12-07 22:00] VITALS: BP 121/86; PULSE 82; RESP 18; TEMP 97.4; O2SAT 93
[2023-12-08 06:00] VITALS: BP_SYST 132; BP_SYST 142; BP_DIAS 52; BP_DIAS 73; BP_DIAS 82; PULSE 76; PULSE 77; RESP 15; RESP 18; TEMP 96.7; TEMP 97; O2SAT 100; O2SAT 98
[2023-12-08 08:00] VITALS: RESP 18; O2SAT 98
[2023-12-08 09:08] LABS: ALANINE AMINOTRANSFERASE 26 U/L (12-78); ALBUMIN 2.5 G/DL (3.4-5.0); ALBUMIN/GLOBULIN RATIO 0.5 (1.1-1.5); ALKALINE PHOSPHATASE 71 IU/L (46-116); ANION GAP 11 (8-16); ASPARTATE AMINO TRANSFERASE 25 U/L (10-37); BILIRUBIN,TOTAL 0.4 MG/DL (0.1-1.0); BLOOD UREA NITROGEN 28 MG/DL (7-18); BUN/CREATININE RATIO 33.7 (10.0-20.0); CALCIUM 9.4 MG/DL (8.5-10.1); CHLORIDE 103 MMOL/L (99-107); CREATININE 0.83 MG/DL (0.40-0.90); GLUCOSE 135 MG/DL (70-104); SODIUM 142 MMOL/L (135-145); TOTAL CARBON DIOXIDE 28.5 MMOL/L (24-32); eCRCL 89 ML/MIN; eGFR 74 ML/MIN
[2023-12-08 10:00] VITALS: BP 129/84; PULSE 102; RESP 18; TEMP 98.2; O2SAT 97
[2023-12-08 18:00] VITALS: BP 114/59; PULSE 74; RESP 18; TEMP 98.8; O2SAT 92
[2023-12-08 22:10] VITALS: BP 116/62; PULSE 76; RESP 15; TEMP 98; O2SAT 95
[2023-12-09] VITALS (7 sets, daily range): BP systolic 114–163; BP diastolic 63–96; PULSE 62–115; RESP 14–20; TEMP 97.7–98.4; O2SAT 97–100
[2023-12-09] MEDS: dextrose 50%-water 50ml dispensing syringe IV PRN (08:28)
[2023-12-10 06:00] VITALS: BP 133/80; PULSE 75; RESP 17; TEMP 98.5; O2SAT 98
[2023-12-10 07:51] LABS: ALBUMIN 2.2 G/DL (3.4-5.0); ANION GAP 5 (8-16); BLOOD UREA NITROGEN 24 MG/DL (7-18); BUN/CREATININE RATIO 38.1 (10.0-20.0); CALCIUM 8.5 MG/DL (8.5-10.1); CHLORIDE 101 MMOL/L (99-107); CREATININE 0.63 MG/DL (0.40-0.90); GLUCOSE 100 MG/DL (70-104); POTASSIUM 3.7 MMOL/L (3.5-5.1); SODIUM 139 MMOL/L (135-145); TOTAL CARBON DIOXIDE 33.3 MMOL/L (24-32); eCRCL 118 ML/MIN; eGFR > 90 ML/MIN
[2023-12-10 10:00] VITALS: BP 101/61; PULSE 72; RESP 14; TEMP 97.7; O2SAT 100
[2023-12-10 18:00] VITALS: BP 135/80; PULSE 79; RESP 14; TEMP 98; O2SAT 96
[2023-12-10 20:00] VITALS: RESP 14; O2SAT 96
[2023-12-10 22:00] VITALS: BP 147/73; PULSE 62; RESP 16; TEMP 96.8; O2SAT 97
[2023-12-11 05:00] VITALS: BP 154/88; PULSE 71; RESP 17; TEMP 97.2; O2SAT 98
[2023-12-11 10:00] VITALS: BP 137/86; PULSE 83; RESP 16; TEMP 97.6; O2SAT 97
[2023-12-11 18:00] VITALS: BP 135/92; PULSE 81; RESP 15; TEMP 97.4; O2SAT 96
[2023-12-11 20:00] VITALS: RESP 14; O2SAT 94
[2023-12-11 22:00] VITALS: BP 122/77; PULSE 73; RESP 14; TEMP 97.6; O2SAT 94
[2023-12-12 06:47] VITALS: BP 162/94; PULSE 76; RESP 16; TEMP 98; O2SAT 95
[2023-12-12 08:00] VITALS: RESP 16; O2SAT 95
[2023-12-12 11:53] VITALS: BP 128/78; PULSE 77; RESP 16; TEMP 98.6; O2SAT 97
[2023-12-12 19:00] VITALS: BP 176/101; PULSE 85; RESP 16; TEMP 99.1; O2SAT 97
[2023-12-12 20:00] VITALS: RESP 14; O2SAT 95
[2023-12-12 22:30] VITALS: BP 173/96; PULSE 82; RESP 18; TEMP 97.4; O2SAT 96
[2023-12-13] MEDS: hydrALAZINE 20mg/ml inj. IV ONE (01:41)
[2023-12-13 02:40] VITALS: BP 167/94; PULSE 88; RESP 18; TEMP 97.9; O2SAT 97
[2023-12-13] MEDS: morphine 2 MG/ML inj. syringe IV ONE (02:57)
[2023-12-13 04:27] VITALS: BP 161/87; PULSE 91
[2023-12-13] MEDS: HYDROcodone/acetaminophen 10/325mg tab PO PRN (04:54)
[2023-12-13 06:19] LABS: ALBUMIN 2.3 G/DL (3.4-5.0); ANION GAP 10 (8-16); BLOOD UREA NITROGEN 20 MG/DL (7-18); BUN/CREATININE RATIO 38.5 (10.0-20.0); CALCIUM 9.1 MG/DL (8.5-10.1); CHLORIDE 101 MMOL/L (99-107); CREATININE 0.52 MG/DL (0.40-0.90); GLUCOSE 110 MG/DL (70-104); POTASSIUM 3.7 MMOL/L (3.5-5.1); SODIUM 140 MMOL/L (135-145); eCRCL 143 ML/MIN; eGFR > 90 ML/MIN
[2023-12-13 08:00] VITALS: BP 140/87; PULSE 83; RESP 18; O2SAT 96
[2023-12-13 10:00] VITALS: BP 150/87; PULSE 71; RESP 16; TEMP 97.4; O2SAT 96
[2023-12-13 18:00] VITALS: BP 147/81; PULSE 83; RESP 17; TEMP 98.4; O2SAT 95
[2023-12-13 22:00] VITALS: BP 146/71; PULSE 83; RESP 18; TEMP 97.6; O2SAT 96
[2023-12-14] VITALS (7 sets, daily range): BP systolic 109–186; BP diastolic 68–100; PULSE 70–100; RESP 14–20; TEMP 97.5–98.1; O2SAT 95–100
[2023-12-14] MEDS ORDERED: hydrALAZINE 20mg/ml inj. IV PRN (10:55)
[2023-12-14] MEDS: amLODIPine 5mg tablet PO ONE (11:20)
[2023-12-15 06:00] VITALS: BP 163/92; PULSE 78; RESP 16; TEMP 97.4; O2SAT 100
[2023-12-15] MEDS: amLODIPine 5mg tablet PO SCH (08:33)
[2023-12-15] MEDS: losartan 50mg tablet PO SCH (08:33)
[2023-12-15 10:00] VITALS: BP 122/70; PULSE 66; RESP 20; TEMP 98.9; O2SAT 97
[2023-12-15 13:12] VITALS: RESP 18; O2SAT 97
[2023-12-15 13:52] VITALS: BP 147/66; PULSE 66; RESP 18; TEMP 97.6; O2SAT 97
[2023-12-15 18:00] VITALS: BP 157/68; PULSE 86; RESP 18; TEMP 96.6; O2SAT 96
[2023-12-15 22:00] VITALS: BP 132/78; PULSE 87; RESP 16; TEMP 98.2; O2SAT 96
[2023-12-16 06:00] VITALS: BP 140/85; PULSE 79; RESP 16; TEMP 98.2; O2SAT 94
[2023-12-16 07:22] LABS: ALBUMIN 2.2 G/DL (3.4-5.0); ANION GAP 6 (8-16); BLOOD UREA NITROGEN 24 MG/DL (7-18); BUN/CREATININE RATIO 46.2 (10.0-20.0); CHLORIDE 102 MMOL/L (99-107); CREATININE 0.52 MG/DL (0.40-0.90); GLUCOSE 76 MG/DL (70-104); POTASSIUM 3.5 MMOL/L (3.5-5.1); SODIUM 139 MMOL/L (135-145); TOTAL CARBON DIOXIDE 31.4 MMOL/L (24-32); eCRCL 143 ML/MIN; eGFR > 90 ML/MIN
[2023-12-16] MEDS: aspirin 81mg tab.chew PO SCH (08:46)
[2023-12-16 10:00] VITALS: BP 126/78; PULSE 70; RESP 14; TEMP 98.3; O2SAT 95
[2023-12-16 18:00] VITALS: BP 111/70; PULSE 82; RESP 14; TEMP 98.5; O2SAT 97
[2023-12-16 22:00] VITALS: BP 146/82; PULSE 82; RESP 16; TEMP 97.3; O2SAT 95
[2023-12-17 06:50] VITALS: BP 153/88; PULSE 78; RESP 16; TEMP 98.6; O2SAT 96
[2023-12-17 08:15] VITALS: RESP 20; O2SAT 93
[2023-12-17 18:00] VITALS: BP 122/72; PULSE 75; RESP 14; TEMP 97.6; O2SAT 97
[2023-12-17 21:02] LABS: UA COLLECTION TYPE FOLEY CATH
[2023-12-17 21:03] LABS: CLARITY,URINE CLOUDY (Clear); COLOR,URINE RED (Yellow)
[2023-12-17 21:10] LABS: BACTERIA,URINE FEW /HPF (Neg); RBC,URINE TNTC /HPF (0-2)
[2023-12-17 21:11] LABS: MUCUS STRANDS FEW /LPF (Neg); SQUAMOUS EPITHELIAL CELL,UR MODERATE /LPF (FEW)
[2023-12-17 22:37] VITALS: BP 132/87; PULSE 78; RESP 20; TEMP 97.9; O2SAT 97
[2023-12-18] VITALS (7 sets, daily range): BP systolic 110–171; BP diastolic 77–90; PULSE 80–94; RESP 16–24; TEMP 97.4–98.7; O2SAT 96–98
[2023-12-18] MEDS: CefTRIAXone/D5W-Rocephin 1gm 50 ML IV SCH (14:53)
[2023-12-19 06:00] VITALS: BP 142/81; PULSE 83; RESP 20; TEMP 97.9; O2SAT 98
[2023-12-19 08:45] VITALS: RESP 20; O2SAT 98
[2023-12-19 10:00] VITALS: BP 139/64; PULSE 78; RESP 20; TEMP 96.3; O2SAT 91
[2023-12-19 16:33] LABS: ALANINE AMINOTRANSFERASE 18 U/L (12-78); ALBUMIN 2.3 G/DL (3.4-5.0); ALBUMIN/GLOBULIN RATIO 0.4 (1.1-1.5); ALKALINE PHOSPHATASE 83 IU/L (46-116); ANION GAP 6 (8-16); ASPARTATE AMINO TRANSFERASE 19 U/L (10-37); BILIRUBIN,TOTAL 0.3 MG/DL (0.1-1.0); BLOOD UREA NITROGEN 19 MG/DL (7-18); BUN/CREATININE RATIO 29.7 (10.0-20.0); CALCIUM 9.1 MG/DL (8.5-10.1); CHLORIDE 101 MMOL/L (99-107); CREATININE 0.64 MG/DL (0.40-0.90); GLUCOSE 110 MG/DL (70-104); POTASSIUM 3.5 MMOL/L (3.5-5.1); SODIUM 139 MMOL/L (135-145); TOTAL CARBON DIOXIDE 32.3 MMOL/L (24-32); TOTAL PROTEIN 7.5 G/DL (6.4-8.2); eCRCL 116 ML/MIN; eGFR > 90 ML/MIN
[2023-12-19 18:00] VITALS: BP 144/85; PULSE 96; RESP 20; TEMP 96.7; O2SAT 98
[2023-12-19 20:00] VITALS: RESP 18; O2SAT 98
[2023-12-19 22:00] VITALS: BP 153/87; PULSE 80; RESP 18; TEMP 97.8; O2SAT 98
[2023-12-20 06:00] VITALS: BP 163/97; PULSE 91; RESP 18; TEMP 97.9; O2SAT 96
[2023-12-20 08:00] VITALS: RESP 18; O2SAT 96
[2023-12-20 10:00] VITALS: BP 162/93; PULSE 101; RESP 18; TEMP 97.7; O2SAT 95
[2023-12-20 18:00] VITALS: BP_SYST 115; BP_SYST 129; BP_SYST 163; BP_DIAS 100; BP_DIAS 52; BP_DIAS 97; PULSE 78; PULSE 87; PULSE 91; RESP 15; RESP 18; TEMP 97.8; TEMP 97.9; TEMP 98; O2SAT 96; O2SAT 97; O2SAT 99
[2023-12-20 20:00] VITALS: RESP 17; O2SAT 100
[2023-12-20 22:00] VITALS: BP_SYST 118; BP_SYST 119; BP_DIAS 61; BP_DIAS 83; PULSE 71; PULSE 76; RESP 16; TEMP 97.7; TEMP 98.6; O2SAT 100; O2SAT 97
[2023-12-21 06:00] VITALS: BP 129/70; PULSE 78; RESP 15; TEMP 98.3; O2SAT 95
[2023-12-21 08:00] VITALS: RESP 16; O2SAT 98
[2023-12-21] MEDS: losartan 50mg tablet PO SCH (08:00)
[2023-12-21 18:00] VITALS: BP 137/86; PULSE 78; RESP 15; TEMP 98.5; O2SAT 97
[2023-12-21 20:00] VITALS: RESP 15; O2SAT 97
[2023-12-21 22:00] VITALS: BP 165/81; PULSE 92; RESP 15; TEMP 98.6; O2SAT 98
[2023-12-22 06:00] VITALS: BP 140/75; PULSE 75; RESP 15; TEMP 97.3; O2SAT 97
[2023-12-22 06:50] LABS: BASOPHILS # (AUTO) 0.2 X10'3 (0-0.2); BASOPHILS % (AUTO) 1.5 % (0-1); EOSINOPHILS # (AUTO) 0.4 X10'3 (0-0.9); HEMATOCRIT 36.9 % (35.0-45.0); HEMOGLOBIN 12.4 g/dl (12.0-16.0); LYMPHOCYTES # (AUTO) 2.9 X10'3 (1.1-4.8); LYMPHOCYTES % (AUTO) 26.5 % (21-51); MEAN CORPUSCULAR HEMOGLOBIN 28.3 PG (27.0-31.0); MEAN CORPUSCULAR HGB CONC 33.7 g/dL (33.0-36.5); MEAN CORPUSCULAR VOLUME 84.1 FL (78-98); MEAN PLATELET VOLUME 7.8 FL (7.4-10.4); MONOCYTES # (AUTO) 0.5 X10'3 (0-0.9); MONOCYTES % (AUTO) 4.5 % (2-12); NEUTROPHILS # (AUTO) 7.1 X10'3 (1.8-7.7); NEUTROPHILS % (AUTO) 63.5 % (42-75); PLATELET COUNT 224 X10'3 (140-440); RED BLOOD COUNT 4.39 X10'6 (4.20-5.60); RED CELL DISTRIBUTION WIDTH 14.7 % (11.5-14.5); WHITE BLOOD COUNT 11.1 X10'3 (4.5-11.0)
[2023-12-22 07:00] LABS: ALBUMIN 2.6 G/DL (3.4-5.0); ANION GAP 7 (8-16); BLOOD UREA NITROGEN 20 MG/DL (7-18); BUN/CREATININE RATIO 33.3 (10.0-20.0); CALCIUM 9.2 MG/DL (8.5-10.1); CHLORIDE 100 MMOL/L (99-107); GLUCOSE 92 MG/DL (70-104); POTASSIUM 3.2 MMOL/L (3.5-5.1); SODIUM 140 MMOL/L (135-145); TOTAL CARBON DIOXIDE 33.1 MMOL/L (24-32); eCRCL 124 ML/MIN; eGFR > 90 ML/MIN
[2023-12-22 08:00] VITALS: RESP 16; O2SAT 98
[2023-12-22 08:10] VITALS: RESP 15; O2SAT 97
[2023-12-22 10:00] VITALS: BP 127/90; PULSE 126; RESP 16; TEMP 97.9; O2SAT 97
[2023-12-22 18:00] VITALS: BP 115/66; PULSE 78; RESP 16; TEMP 98.2; O2SAT 95
[2023-12-22] MEDS: ringers solution, lacted 1,000 ML IV ONE (19:55)
[2023-12-22] MEDS: chlorhexidine gluconate 15ml Cup****oral rinse MM SCH (21:24)
[2023-12-22 22:00] VITALS: BP 143/85; PULSE 80; RESP 16; TEMP 98.3; O2SAT 96
[2023-12-23] MEDS: potassium Cl 40MEQ/1/2NS 520ml 520 ML IV PRN ×2 (00:16→14:36)
[2023-12-23 07:00] VITALS: BP 156/102; PULSE 99; RESP 18; TEMP 97.8; O2SAT 95
[2023-12-23 07:01] LABS: BASOPHILS # (AUTO) 0.1 X10'3 (0-0.2); BASOPHILS % (AUTO) 0.5 % (0-1); EOSINOPHILS # (AUTO) 0.4 X10'3 (0-0.9); EOSINOPHILS % (AUTO) 3.1 % (0-6); HEMATOCRIT 38.6 % (35.0-45.0); HEMOGLOBIN 12.4 g/dl (12.0-16.0); LYMPHOCYTES # (AUTO) 2.9 X10'3 (1.1-4.8); LYMPHOCYTES % (AUTO) 20.6 % (21-51); MEAN CORPUSCULAR HEMOGLOBIN 27.4 PG (27.0-31.0); MEAN CORPUSCULAR HGB CONC 32.2 g/dL (33.0-36.5); MEAN PLATELET VOLUME 7.8 FL (7.4-10.4); MONOCYTES # (AUTO) 0.8 X10'3 (0-0.9); MONOCYTES % (AUTO) 5.5 % (2-12); NEUTROPHILS % (AUTO) 70.3 % (42-75); PLATELET COUNT 231 X10'3 (140-440); RED BLOOD COUNT 4.54 X10'6 (4.20-5.60); RED CELL DISTRIBUTION WIDTH 14.7 % (11.5-14.5); WHITE BLOOD COUNT 14.2 X10'3 (4.5-11.0)
[2023-12-23 07:16] LABS: ALBUMIN 2.6 G/DL (3.4-5.0); ANION GAP 5 (8-16); BLOOD UREA NITROGEN 20 MG/DL (7-18); BUN/CREATININE RATIO 36.4 (10.0-20.0); CALCIUM 9.1 MG/DL (8.5-10.1); CHLORIDE 103 MMOL/L (99-107); CREATININE 0.55 MG/DL (0.40-0.90); GLUCOSE 102 MG/DL (70-104); POTASSIUM 3.2 MMOL/L (3.5-5.1); SODIUM 139 MMOL/L (135-145); TOTAL CARBON DIOXIDE 30.6 MMOL/L (24-32); eCRCL 135 ML/MIN; eGFR > 90 ML/MIN
[2023-12-23] MEDS: vitamin B comp w/Vit. C tab 1 TAB TABLET PO SCH (08:57)
[2023-12-23] MEDS: multivitamins, therapeutics tablet PO SCH (08:58)
[2023-12-23] MEDS: cholecalciferol (vitamin D3) 1,000 unit (25mcg) tablet PO SCH (08:58)
[2023-12-23 09:30] VITALS: RESP 18; O2SAT 97
[2023-12-23 10:00] VITALS: BP 156/96; PULSE 94; RESP 20; TEMP 98.5; O2SAT 97
[2023-12-23] MEDS ORDERED: magnesium Cl slow-release 64mg tablet PO PRN ×2 (11:25→17:05)
[2023-12-23] MEDS ORDERED: magnesium 4gm in 100ml NS 100 ML IV PRN ×2 (11:25→17:05)
[2023-12-23] MEDS ORDERED: magnesium 2GM in 50ml NS 50 ML IV PRN ×2 (11:25→17:05)
[2023-12-23] MEDS ORDERED: potassium Cl 20 mEq SR tablet PO PRN (17:05)
[2023-12-23] MEDS: POTASSIUM BICARB 20meq eff tab 20 MEQ TABLET.EFF PO PRN (17:57)
[2023-12-23 18:00] VITALS: BP 126/79; PULSE 74; RESP 16; TEMP 97.6; O2SAT 99
[2023-12-23 20:00] VITALS: RESP 16; O2SAT 97
[2023-12-23 22:00] VITALS: BP 110/73; PULSE 73; RESP 16; TEMP 98.1; O2SAT 97
[2023-12-24 06:30] VITALS: BP 155/95; PULSE 86; RESP 16; TEMP 98.2; O2SAT 96
[2023-12-24 07:40] LABS: BASOPHILS % (AUTO) 0.4 % (0-1); EOSINOPHILS # (AUTO) 0.4 X10'3 (0-0.9); HEMATOCRIT 36.1 % (35.0-45.0); HEMOGLOBIN 12.1 g/dl (12.0-16.0); LYMPHOCYTES # (AUTO) 2.9 X10'3 (1.1-4.8); LYMPHOCYTES % (AUTO) 26.7 % (21-51); MEAN CORPUSCULAR HEMOGLOBIN 28.3 PG (27.0-31.0); MEAN CORPUSCULAR HGB CONC 33.5 g/dL (33.0-36.5); MEAN CORPUSCULAR VOLUME 84.5 FL (78-98); MEAN PLATELET VOLUME 7.8 FL (7.4-10.4); MONOCYTES # (AUTO) 0.6 X10'3 (0-0.9); MONOCYTES % (AUTO) 5.7 % (2-12); NEUTROPHILS # (AUTO) 6.8 X10'3 (1.8-7.7); NEUTROPHILS % (AUTO) 63.2 % (42-75); PLATELET COUNT 234 X10'3 (140-440); RED BLOOD COUNT 4.27 X10'6 (4.20-5.60); WHITE BLOOD COUNT 10.7 X10'3 (4.5-11.0)
[2023-12-24 07:49] LABS: BLOOD UREA NITROGEN 22 MG/DL (7-18)
[2023-12-24 08:00] VITALS: RESP 16; O2SAT 96
[2023-12-24 08:02] LABS: ALBUMIN 2.6 G/DL (3.4-5.0); ANION GAP 7 (8-16); BUN/CREATININE RATIO 38.6 (10.0-20.0); CALCIUM 9.5 MG/DL (8.5-10.1); CHLORIDE 103 MMOL/L (99-107); CREATININE 0.57 MG/DL (0.40-0.90); GLUCOSE 99 MG/DL (70-104); MAGNESIUM 2.1 MG/DL (1.5-2.4); POTASSIUM 3.8 MMOL/L (3.5-5.1); SODIUM 141 MMOL/L (135-145); TOTAL CARBON DIOXIDE 31.3 MMOL/L (24-32); eCRCL 130 ML/MIN; eGFR > 90 ML/MIN
[2023-12-24 10:00] VITALS: BP 122/58; PULSE 89; RESP 18; TEMP 98.6; O2SAT 98
[2023-12-24 18:00] VITALS: BP 121/70; PULSE 88; RESP 16; TEMP 97.2; O2SAT 98
[2023-12-24 20:00] VITALS: RESP 16; O2SAT 100
[2023-12-24] MEDS: bisacodyl 10mg suppository rectal RC PRN (20:22)
[2023-12-24] MEDS: temazepam 15mg capsule PEG PRN (21:53)
[2023-12-24 22:00] VITALS: BP 166/101; PULSE 108; RESP 16; TEMP 98.3; O2SAT 100
[2023-12-25 06:43] VITALS: BP 124/75; PULSE 89; RESP 16; TEMP 98.6; O2SAT 94
[2023-12-25 07:24] LABS: BASOPHILS # (AUTO) 0.1 X10'3 (0-0.2); BASOPHILS % (AUTO) 0.5 % (0-1); EOSINOPHILS # (AUTO) 0.4 X10'3 (0-0.9); EOSINOPHILS % (AUTO) 3.8 % (0-6); HEMATOCRIT 36.3 % (35.0-45.0); HEMOGLOBIN 11.8 g/dl (12.0-16.0); LYMPHOCYTES # (AUTO) 3.2 X10'3 (1.1-4.8); LYMPHOCYTES % (AUTO) 28.8 % (21-51); MEAN CORPUSCULAR HEMOGLOBIN 27.8 PG (27.0-31.0); MEAN CORPUSCULAR HGB CONC 32.7 g/dL (33.0-36.5); MEAN CORPUSCULAR VOLUME 85.1 FL (78-98); MONOCYTES # (AUTO) 0.7 X10'3 (0-0.9); MONOCYTES % (AUTO) 6.7 % (2-12); NEUTROPHILS # (AUTO) 6.6 X10'3 (1.8-7.7); NEUTROPHILS % (AUTO) 60.2 % (42-75); PLATELET COUNT 253 X10'3 (140-440); RED BLOOD COUNT 4.26 X10'6 (4.20-5.60)
[2023-12-25 07:36] LABS: ALBUMIN 2.4 G/DL (3.4-5.0); ANION GAP 7 (8-16); BLOOD UREA NITROGEN 22 MG/DL (7-18); BUN/CREATININE RATIO 33.8 (10.0-20.0); CALCIUM 9.1 MG/DL (8.5-10.1); CHLORIDE 101 MMOL/L (99-107); CREATININE 0.65 MG/DL (0.40-0.90); GLUCOSE 95 MG/DL (70-104); POTASSIUM 3.5 MMOL/L (3.5-5.1); SODIUM 138 MMOL/L (135-145); eCRCL 114 ML/MIN; eGFR > 90 ML/MIN
[2023-12-25 08:00] VITALS: RESP 16; O2SAT 96
[2023-12-25 18:00] VITALS: BP_SYST 123; BP_SYST 153; BP_DIAS 102; BP_DIAS 63; PULSE 87; PULSE 93; RESP 16; RESP 18; TEMP 96.4; TEMP 97.5; O2SAT 96; O2SAT 97
[2023-12-25 20:00] VITALS: RESP 16; O2SAT 97
[2023-12-26 06:00] VITALS: BP 129/75; PULSE 77; RESP 16; TEMP 98; O2SAT 97
[2023-12-26 07:19] LABS: BASOPHILS % (AUTO) 0.4 % (0-1); EOSINOPHILS # (AUTO) 0.4 X10'3 (0-0.9); EOSINOPHILS % (AUTO) 3.2 % (0-6); HEMATOCRIT 35.9 % (35.0-45.0); HEMOGLOBIN 11.7 g/dl (12.0-16.0); LYMPHOCYTES # (AUTO) 3.5 X10'3 (1.1-4.8); LYMPHOCYTES % (AUTO) 29.5 % (21-51); MEAN CORPUSCULAR HEMOGLOBIN 27.6 PG (27.0-31.0); MEAN CORPUSCULAR HGB CONC 32.7 g/dL (33.0-36.5); MEAN CORPUSCULAR VOLUME 84.4 FL (78-98); MONOCYTES # (AUTO) 0.9 X10'3 (0-0.9); MONOCYTES % (AUTO) 7.3 % (2-12); NEUTROPHILS % (AUTO) 59.6 % (42-75); PLATELET COUNT 240 X10'3 (140-440); RED BLOOD COUNT 4.25 X10'6 (4.20-5.60); RED CELL DISTRIBUTION WIDTH 14.8 % (11.5-14.5); WHITE BLOOD COUNT 11.8 X10'3 (4.5-11.0)
[2023-12-26 07:24] LABS: ALBUMIN 2.5 G/DL (3.4-5.0); ANION GAP 8 (8-16); BLOOD UREA NITROGEN 19 MG/DL (7-18); BUN/CREATININE RATIO 37.3 (10.0-20.0); CALCIUM 8.8 MG/DL (8.5-10.1); CHLORIDE 100 MMOL/L (99-107); CREATININE 0.51 MG/DL (0.40-0.90); GLUCOSE 82 MG/DL (70-104); MAGNESIUM 1.9 MG/DL (1.5-2.4); POTASSIUM 3.1 MMOL/L (3.5-5.1); SODIUM 139 MMOL/L (135-145); TOTAL CARBON DIOXIDE 31.4 MMOL/L (24-32); eCRCL 146 ML/MIN; eGFR > 90 ML/MIN
[2023-12-26 08:00] VITALS: RESP 15; O2SAT 94
[2023-12-26] MEDS: potassium Cl 20 mEq SR tablet PO PRN (08:36)
[2023-12-26] MEDS: modafinil 100mg tablet GT SCH (08:36)
[2023-12-26 10:00] VITALS: BP 145/91; PULSE 89; RESP 15; TEMP 97.5; O2SAT 94
[2023-12-26 18:00] VITALS: BP 122/76; PULSE 90; RESP 15; TEMP 98; O2SAT 98
[2023-12-26 20:00] VITALS: RESP 18; O2SAT 95
[2023-12-26 22:00] VITALS: BP 139/84; PULSE 85; RESP 18; TEMP 97.3; O2SAT 95
[2023-12-27 06:00] VITALS: BP 140/101; PULSE 95; RESP 18; TEMP 97.2; O2SAT 97
[2023-12-27 07:39] LABS: ALBUMIN 2.7 G/DL (3.4-5.0); ANION GAP 7 (8-16); BLOOD UREA NITROGEN 14 MG/DL (7-18); BUN/CREATININE RATIO 28.6 (10.0-20.0); CHLORIDE 100 MMOL/L (99-107); CREATININE 0.49 MG/DL (0.40-0.90); GLUCOSE 94 MG/DL (70-104); POTASSIUM 3.3 MMOL/L (3.5-5.1); SODIUM 136 MMOL/L (135-145); TOTAL CARBON DIOXIDE 28.6 MMOL/L (24-32); eCRCL 152 ML/MIN; eGFR > 90 ML/MIN
[2023-12-27 08:00] VITALS: RESP 18; O2SAT 97
[2023-12-27 10:00] VITALS: BP 125/74; PULSE 84; RESP 15; TEMP 98.3; O2SAT 98
[2023-12-27] MEDS: LidoCAINE 2% Topical Jelly 11mL syringe (UROJET) TOP ONE (17:40)
[2023-12-27 18:00] VITALS: BP 103/58; PULSE 68; RESP 19; TEMP 98.2; O2SAT 98
[2023-12-27 20:00] VITALS: RESP 15; O2SAT 98
[2023-12-27 22:00] VITALS: BP 120/77; PULSE 80; RESP 18; TEMP 97.1; O2SAT 99
[2023-12-28 06:00] VITALS: BP 129/111; PULSE 82; RESP 16; TEMP 97.6; O2SAT 99
[2023-12-28 08:00] VITALS: RESP 16; O2SAT 99
[2023-12-28 10:00] VITALS: BP 154/92; PULSE 80; RESP 16; TEMP 98.1; O2SAT 98
[2023-12-28 11:06] LABS: MAGNESIUM 2.4 MG/DL (1.5-2.4)
[2023-12-28 11:37] LABS: POTASSIUM 4.2 MMOL/L (3.5-5.1)
[2023-12-28 18:00] VITALS: BP 147/85; PULSE 76; RESP 14; TEMP 97; O2SAT 100
[2023-12-28 22:00] VITALS: BP 141/57; PULSE 94; RESP 18; TEMP 97.6; O2SAT 99
[2023-12-29 06:00] VITALS: BP 124/87; PULSE 79; RESP 16; TEMP 97.4; O2SAT 97
[2023-12-29 07:04] VITALS: RESP 16
[2023-12-29 11:29] VITALS: BP 133/87; PULSE 75; RESP 18; TEMP 97.6; O2SAT 97
[2023-12-29 13:46] VITALS: RESP 22; O2SAT 97
[2023-12-29] MEDS: haloperidol lactate 5mg/ml inj IM ONE (14:08)
[2023-12-29 19:00] VITALS: RESP 22; O2SAT 97
[2023-12-29] MEDS ORDERED: aspirin 81mg tab.chew OGT SCH (19:14)
[2023-12-29] MEDS ORDERED: amLODIPine 5mg tablet JT SCH (19:14)
[2023-12-29] MEDS ORDERED: amLODIPine 5mg tablet OGT SCH (19:15)
[2023-12-29] MEDS ORDERED: DEXTROSE 15 GM of carb/4 tabs (each vial/BOTTLE has 4 tablets) GT PRN ×2 (19:24→19:25)
[2023-12-29] MEDS ORDERED: ondansetron 4mg rapidly disintigrating tab JT PRN (19:27)
[2023-12-30 06:00] VITALS: BP 107/66; PULSE 72; RESP 16; TEMP 98.5; O2SAT 96
[2023-12-30] MEDS: amLODIPine 5mg tablet JT SCH (08:00)
[2023-12-30] MEDS: losartan 50mg tablet GT SCH (08:00)
[2023-12-30 08:07] VITALS: RESP 16
[2023-12-30] MEDS: cholecalciferol (vitamin D3) 1,000 unit (25mcg) tablet JT SCH (09:43)
[2023-12-30] MEDS: aspirin 81mg tab.chew GT SCH (09:43)
[2023-12-30] MEDS: MULTIVIT-MIN/FERROUS GLUCONATE 9 MG/15 ML LIQUID GT SCH (09:44)
[2023-12-30] MEDS: vitamin B comp w/Vit. C tab 1 TAB TABLET GT SCH (09:44)
[2023-12-30 11:51] VITALS: BP 128/89; PULSE 80; RESP 18; TEMP 97.3; O2SAT 97
[2023-12-30 19:00] VITALS: RESP 16
[2023-12-30] MEDS: HYDROcodone/acetaminophen 7.5MG/325MG per 15ml UD CUP JT PRN (21:10)
[2023-12-30 22:00] VITALS: BP 155/69; PULSE 94; RESP 16; TEMP 97.7; O2SAT 97
[2023-12-31] MEDS ORDERED: DEXTROSE 15 GM of carb/4 tabs (each vial/BOTTLE has 4 tablets) PO PRN ×2 (00:50)
[2023-12-31] MEDS ORDERED: glucagon, human recombinant 1mg kit SUBCUT PRN (00:50)
[2023-12-31] MEDS ORDERED: dextrose 50%-water 50ml dispensing syringe IV PRN ×2 (00:50)
[2023-12-31] MEDS: insulin regular, human U-100 3ml vial - multi-dose SQ SCH ×2 (02:00→02:16)
[2023-12-31] MEDS: HYDROcodone/acetaminophen 7.5MG/325MG per 15ml UD CUP JT PRN (04:41)
[2023-12-31 06:30] VITALS: BP 129/76; PULSE 75; RESP 16; TEMP 97.3; O2SAT 99
[2023-12-31] MEDS ORDERED: insulin Lispro (HumaLOG) vial - multi-dose SQ SCH (07:00)
[2023-12-31 08:00] VITALS: RESP 16; O2SAT 99
[2023-12-31 10:00] VITALS: BP 149/66; PULSE 84; RESP 16; TEMP 98.1; O2SAT 96
[2023-12-31 20:00] VITALS: RESP 16; O2SAT 98
[2023-12-31 22:00] VITALS: BP 116/84; PULSE 73; RESP 16; TEMP 98.6; O2SAT 97
[2024-01-01] MEDS: diphenhydrAMINE 25 MG/10 ML UD oral solution GT PRN (00:12)
[2024-01-01 06:59] VITALS: BP 145/85; PULSE 82; RESP 16; TEMP 98.3; O2SAT 96
[2024-01-01 08:30] VITALS: RESP 16; O2SAT 100
[2024-01-01 10:00] VITALS: BP 127/70; PULSE 90; RESP 16; TEMP 97.8; O2SAT 100
[2024-01-01 20:00] VITALS: RESP 16; O2SAT 95
[2024-01-01 22:00] VITALS: BP 130/76; PULSE 81; RESP 16; TEMP 98; O2SAT 95
[2024-01-02 06:43] VITALS: BP 170/99; PULSE 78; RESP 18; TEMP 97; O2SAT 96
[2024-01-02 09:30] VITALS: RESP 16; O2SAT 98
[2024-01-02 10:40] VITALS: BP 154/90; PULSE 91; RESP 16; TEMP 98.3; O2SAT 97
[2024-01-02] MEDS: polyethylene glycol 3350 17gm powd pack PO SCH (15:41)
[2024-01-02 18:00] VITALS: BP 157/84; PULSE 99; RESP 18; TEMP 98.3; O2SAT 97
[2024-01-02] MEDS: docusate sodium 100mg/10ml UD cup PO SCH (19:48)
[2024-01-02 20:00] VITALS: RESP 18; O2SAT 97
[2024-01-02 22:00] VITALS: BP 123/79; PULSE 85; RESP 18; TEMP 97.6; O2SAT 100
[2024-01-03 06:00] VITALS: BP 139/76; PULSE 84; RESP 18; TEMP 98.2; O2SAT 99
[2024-01-03 10:00] VITALS: BP 122/60; PULSE 85; RESP 13; TEMP 97.1; O2SAT 100
[2024-01-03] MEDS: bisacodyl 10mg suppository rectal RC STA (14:18)
[2024-01-03 19:20] LABS: ALANINE AMINOTRANSFERASE 30 U/L (12-78); ALBUMIN 2.8 G/DL (3.4-5.0); ALBUMIN/GLOBULIN RATIO 0.6 (1.1-1.5); ALKALINE PHOSPHATASE 58 IU/L (46-116); ANION GAP 8 (8-16); ASPARTATE AMINO TRANSFERASE 16 U/L (10-37); BILIRUBIN,TOTAL 0.3 MG/DL (0.1-1.0); BLOOD UREA NITROGEN 14 MG/DL (7-18); BUN/CREATININE RATIO 22.2 (10.0-20.0); CALCIUM 9.3 MG/DL (8.5-10.1); CHLORIDE 101 MMOL/L (99-107); CREATININE 0.63 MG/DL (0.40-0.90); GLUCOSE 174 MG/DL (70-104); POTASSIUM 3.1 MMOL/L (3.5-5.1); SODIUM 140 MMOL/L (135-145); TOTAL CARBON DIOXIDE 31.5 MMOL/L (24-32); TOTAL PROTEIN 7.5 G/DL (6.4-8.2); eCRCL 118 ML/MIN; eGFR > 90 ML/MIN
[2024-01-03 20:00] VITALS: RESP 15; O2SAT 98
[2024-01-03 23:00] VITALS: BP 133/89; PULSE 75; RESP 12; TEMP 98.6; O2SAT 98
[2024-01-04 05:52] VITALS: BP 118/65; PULSE 69; RESP 16; TEMP 98.1; O2SAT 100
[2024-01-04 08:43] VITALS: BP 128/78; PULSE 85; RESP 18; TEMP 99.6; O2SAT 100
[2024-01-04 14:00] VITALS: BP 123/86; PULSE 84; RESP 18; TEMP 97.9; O2SAT 100
[2024-01-04] MEDS: POTASSIUM BICARB 20meq eff tab 20 MEQ TABLET.EFF GT PRN (14:20)
[2024-01-04] MEDS: LORazepam 2 mg/ml vial IM ONE (17:20)
[2024-01-04] MEDS ORDERED: LORazepam 2 mg/ml vial IV PRN (17:20)
[2024-01-04] MEDS ORDERED: haloperidol decanoate***LONG-ACTING*** 100mg/ml **IM only** inj. IM ONE (17:30)
[2024-01-04 18:00] VITALS: BP 124/64; PULSE 80; RESP 16; TEMP 97.2; O2SAT 100
[2024-01-04] MEDS: haloperidol decanoate***LONG-ACTING*** 100mg/ml **IM only** inj. IM ONE (18:23)
[2024-01-04 20:00] VITALS: RESP 15; O2SAT 98
[2024-01-04 22:00] VITALS: BP 139/73; PULSE 90; RESP 16; TEMP 97.4; O2SAT 99
[2024-01-05 06:00] VITALS: BP 124/93; PULSE 81; RESP 16; TEMP 97.4; O2SAT 99
[2024-01-05 10:00] VITALS: BP 129/83; PULSE 72; RESP 16; TEMP 97; O2SAT 100
[2024-01-05 12:37] LABS: BASOPHILS % (AUTO) 0.5 % (0-1); EOSINOPHILS # (AUTO) 0.4 X10'3 (0-0.9); EOSINOPHILS % (AUTO) 3.4 % (0-6); HEMATOCRIT 37.1 % (35.0-45.0); HEMOGLOBIN 12.4 g/dl (12.0-16.0); LYMPHOCYTES # (AUTO) 3.3 X10'3 (1.1-4.8); LYMPHOCYTES % (AUTO) 30.6 % (21-51); MEAN CORPUSCULAR HEMOGLOBIN 28.6 PG (27.0-31.0); MEAN CORPUSCULAR HGB CONC 33.4 g/dL (33.0-36.5); MEAN CORPUSCULAR VOLUME 85.7 FL (78-98); MEAN PLATELET VOLUME 8.2 FL (7.4-10.4); MONOCYTES # (AUTO) 0.6 X10'3 (0-0.9); MONOCYTES % (AUTO) 5.5 % (2-12); NEUTROPHILS # (AUTO) 6.6 X10'3 (1.8-7.7); PLATELET COUNT 224 X10'3 (140-440); RED BLOOD COUNT 4.33 X10'6 (4.20-5.60); RED CELL DISTRIBUTION WIDTH 15.1 % (11.5-14.5); WHITE BLOOD COUNT 10.9 X10'3 (4.5-11.0)
[2024-01-05 12:49] LABS: ALANINE AMINOTRANSFERASE 23 U/L (12-78); ALBUMIN 2.6 G/DL (3.4-5.0); ALBUMIN/GLOBULIN RATIO 0.6 (1.1-1.5); ALKALINE PHOSPHATASE 60 IU/L (46-116); ANION GAP 4 (8-16); ASPARTATE AMINO TRANSFERASE 11 U/L (10-37); BILIRUBIN,TOTAL 0.3 MG/DL (0.1-1.0); BLOOD UREA NITROGEN 12 MG/DL (7-18); BUN/CREATININE RATIO 23.1 (10.0-20.0); CHLORIDE 99 MMOL/L (99-107); CREATININE 0.52 MG/DL (0.40-0.90); GLUCOSE 153 MG/DL (70-104); POTASSIUM 3.6 MMOL/L (3.5-5.1); SODIUM 138 MMOL/L (135-145); TOTAL CARBON DIOXIDE 34.6 MMOL/L (24-32); TOTAL PROTEIN 7.3 G/DL (6.4-8.2); eCRCL 143 ML/MIN; eGFR > 90 ML/MIN
[2024-01-05 18:00] VITALS: BP 165/81; PULSE 75; RESP 20; TEMP 96.1; O2SAT 100
[2024-01-05 22:00] VITALS: BP 136/85; PULSE 81; RESP 16; TEMP 97.8; O2SAT 100
[2024-01-06 06:00] VITALS: BP 128/65; PULSE 68; RESP 16; TEMP 97.7; O2SAT 100
[2024-01-06 10:01] VITALS: BP 145/85; PULSE 83; RESP 16; TEMP 97.5; O2SAT 100
[2024-01-06 15:41] VITALS: BP 146/71; PULSE 95
[2024-01-06 18:00] VITALS: BP 142/98; PULSE 88; RESP 18; TEMP 97.7; O2SAT 98
[2024-01-06 20:00] VITALS: RESP 16; O2SAT 96
[2024-01-06 22:00] VITALS: BP 130/90; PULSE 85; RESP 16; TEMP 98.1; O2SAT 96
[2024-01-07] MEDS ORDERED: DEXTROSE 15 GM of carb/4 tabs (each vial/BOTTLE has 4 tablets) GT PRN ×2 (05:05)
[2024-01-07 06:30] VITALS: BP 114/59; PULSE 77; RESP 16; TEMP 97.5; O2SAT 99
[2024-01-07 07:34] LABS: BASOPHILS # (AUTO) 0.1 X10'3 (0-0.2); BASOPHILS % (AUTO) 0.5 % (0-1); EOSINOPHILS # (AUTO) 0.3 X10'3 (0-0.9); EOSINOPHILS % (AUTO) 3.1 % (0-6); HEMATOCRIT 34.1 % (35.0-45.0); HEMOGLOBIN 11.5 g/dl (12.0-16.0); LYMPHOCYTES # (AUTO) 2.8 X10'3 (1.1-4.8); LYMPHOCYTES % (AUTO) 26.6 % (21-51); MEAN CORPUSCULAR HEMOGLOBIN 28.4 PG (27.0-31.0); MEAN CORPUSCULAR HGB CONC 33.6 g/dL (33.0-36.5); MEAN CORPUSCULAR VOLUME 84.5 FL (78-98); MEAN PLATELET VOLUME 8.3 FL (7.4-10.4); MONOCYTES # (AUTO) 0.6 X10'3 (0-0.9); MONOCYTES % (AUTO) 5.6 % (2-12); NEUTROPHILS # (AUTO) 6.9 X10'3 (1.8-7.7); NEUTROPHILS % (AUTO) 64.2 % (42-75); PLATELET COUNT 223 X10'3 (140-440); RED BLOOD COUNT 4.04 X10'6 (4.20-5.60); RED CELL DISTRIBUTION WIDTH 15.1 % (11.5-14.5); WHITE BLOOD COUNT 10.7 X10'3 (4.5-11.0)
[2024-01-07 08:00] VITALS: RESP 16; O2SAT 99
[2024-01-07 08:22] LABS: ALANINE AMINOTRANSFERASE 21 U/L (12-78); ALBUMIN 2.3 G/DL (3.4-5.0); ALBUMIN/GLOBULIN RATIO 0.5 (1.1-1.5); ALKALINE PHOSPHATASE 56 IU/L (46-116); ANION GAP 5 (8-16); ASPARTATE AMINO TRANSFERASE 12 U/L (10-37); BILIRUBIN,TOTAL 0.4 MG/DL (0.1-1.0); BLOOD UREA NITROGEN 14 MG/DL (7-18); BUN/CREATININE RATIO 23.3 (10.0-20.0); CALCIUM 8.8 MG/DL (8.5-10.1); CHLORIDE 99 MMOL/L (99-107); GLUCOSE 179 MG/DL (70-104); POTASSIUM 3.6 MMOL/L (3.5-5.1); SODIUM 135 MMOL/L (135-145); TOTAL CARBON DIOXIDE 31.5 MMOL/L (24-32); TOTAL PROTEIN 6.8 G/DL (6.4-8.2); eCRCL 124 ML/MIN; eGFR > 90 ML/MIN
[2024-01-07 10:00] VITALS: BP 121/61; PULSE 68; RESP 12; TEMP 97.2; O2SAT 91
[2024-01-07 18:00] VITALS: BP 128/64; PULSE 80; RESP 15; TEMP 98.7; O2SAT 99
[2024-01-07 20:00] VITALS: RESP 16; O2SAT 97
[2024-01-07 22:00] VITALS: BP 147/81; PULSE 81; RESP 16; TEMP 97.2; O2SAT 99
[2024-01-08 06:00] VITALS: BP_SYST 116; BP_SYST 138; BP_DIAS 66; BP_DIAS 79; PULSE 72; PULSE 75; RESP 16; TEMP 98.2; O2SAT 97; O2SAT 98
[2024-01-08 07:13] LABS: BASOPHILS # (AUTO) 0.1 X10'3 (0-0.2); BASOPHILS % (AUTO) 0.7 % (0-1); EOSINOPHILS # (AUTO) 0.3 X10'3 (0-0.9); EOSINOPHILS % (AUTO) 2.6 % (0-6); HEMATOCRIT 33.6 % (35.0-45.0); HEMOGLOBIN 11.3 g/dl (12.0-16.0); LYMPHOCYTES # (AUTO) 3.1 X10'3 (1.1-4.8); LYMPHOCYTES % (AUTO) 26.9 % (21-51); MEAN CORPUSCULAR HEMOGLOBIN 28.5 PG (27.0-31.0); MEAN CORPUSCULAR HGB CONC 33.5 g/dL (33.0-36.5); MEAN CORPUSCULAR VOLUME 85.1 FL (78-98); MEAN PLATELET VOLUME 8.3 FL (7.4-10.4); MONOCYTES # (AUTO) 0.7 X10'3 (0-0.9); MONOCYTES % (AUTO) 5.7 % (2-12); NEUTROPHILS # (AUTO) 7.4 X10'3 (1.8-7.7); NEUTROPHILS % (AUTO) 64.1 % (42-75); PLATELET COUNT 202 X10'3 (140-440); RED BLOOD COUNT 3.95 X10'6 (4.20-5.60); RED CELL DISTRIBUTION WIDTH 15.4 % (11.5-14.5); WHITE BLOOD COUNT 11.6 X10'3 (4.5-11.0)
[2024-01-08 07:37] LABS: ALANINE AMINOTRANSFERASE 23 U/L (12-78); ALBUMIN 2.4 G/DL (3.4-5.0); ALBUMIN/GLOBULIN RATIO 0.5 (1.1-1.5); ALKALINE PHOSPHATASE 61 IU/L (46-116); ANION GAP 6 (8-16); ASPARTATE AMINO TRANSFERASE 17 U/L (10-37); BILIRUBIN,TOTAL 0.3 MG/DL (0.1-1.0); BLOOD UREA NITROGEN 16 MG/DL (7-18); BUN/CREATININE RATIO 27.6 (10.0-20.0); CALCIUM 8.9 MG/DL (8.5-10.1); CHLORIDE 100 MMOL/L (99-107); CREATININE 0.58 MG/DL (0.40-0.90); GLUCOSE 182 MG/DL (70-104); POTASSIUM 4.1 MMOL/L (3.5-5.1); SODIUM 138 MMOL/L (135-145); TOTAL CARBON DIOXIDE 31.7 MMOL/L (24-32); TOTAL PROTEIN 6.8 G/DL (6.4-8.2); eCRCL 128 ML/MIN; eGFR > 90 ML/MIN
[2024-01-08 08:00] VITALS: RESP 16; O2SAT 97
[2024-01-08 10:00] VITALS: BP 122/74; PULSE 74; RESP 17; TEMP 97.8; O2SAT 97
[2024-01-08 18:00] VITALS: BP 147/87; PULSE 68; RESP 14; TEMP 97.1; O2SAT 98
[2024-01-08 20:00] VITALS: RESP 16; O2SAT 98
[2024-01-08 22:00] VITALS: BP 158/84; PULSE 78; RESP 16; TEMP 96.8; O2SAT 97
[2024-01-09 06:00] VITALS: BP 101/59; PULSE 77; RESP 16; TEMP 98.2; O2SAT 99
[2024-01-09 07:03] LABS: BASOPHILS # (AUTO) 0.1 X10'3 (0-0.2); BASOPHILS % (AUTO) 0.5 % (0-1); EOSINOPHILS # (AUTO) 0.4 X10'3 (0-0.9); HEMATOCRIT 33.4 % (35.0-45.0); HEMOGLOBIN 11.5 g/dl (12.0-16.0); LYMPHOCYTES # (AUTO) 3.5 X10'3 (1.1-4.8); LYMPHOCYTES % (AUTO) 29.4 % (21-51); MEAN CORPUSCULAR HEMOGLOBIN 29.1 PG (27.0-31.0); MEAN CORPUSCULAR HGB CONC 34.3 g/dL (33.0-36.5); MEAN PLATELET VOLUME 8.3 FL (7.4-10.4); MONOCYTES # (AUTO) 0.5 X10'3 (0-0.9); MONOCYTES % (AUTO) 4.7 % (2-12); NEUTROPHILS # (AUTO) 7.3 X10'3 (1.8-7.7); NEUTROPHILS % (AUTO) 62.4 % (42-75); PLATELET COUNT 198 X10'3 (140-440); RED BLOOD COUNT 3.93 X10'6 (4.20-5.60); RED CELL DISTRIBUTION WIDTH 15.3 % (11.5-14.5); WHITE BLOOD COUNT 11.8 X10'3 (4.5-11.0)
[2024-01-09 07:26] LABS: ALANINE AMINOTRANSFERASE 21 U/L (12-78); ALBUMIN 2.3 G/DL (3.4-5.0); ALBUMIN/GLOBULIN RATIO 0.5 (1.1-1.5); ALKALINE PHOSPHATASE 64 IU/L (46-116); ANION GAP 8 (8-16); ASPARTATE AMINO TRANSFERASE 14 U/L (10-37); BILIRUBIN,TOTAL 0.4 MG/DL (0.1-1.0); BLOOD UREA NITROGEN 14 MG/DL (7-18); BUN/CREATININE RATIO 25.5 (10.0-20.0); CALCIUM 8.8 MG/DL (8.5-10.1); CHLORIDE 99 MMOL/L (99-107); CREATININE 0.55 MG/DL (0.40-0.90); GLUCOSE 184 MG/DL (70-104); POTASSIUM 3.7 MMOL/L (3.5-5.1); SODIUM 138 MMOL/L (135-145); TOTAL CARBON DIOXIDE 30.7 MMOL/L (24-32); TOTAL PROTEIN 6.9 G/DL (6.4-8.2); eCRCL 135 ML/MIN; eGFR > 90 ML/MIN
[2024-01-09 08:00] VITALS: RESP 16; O2SAT 99
[2024-01-09 11:00] VITALS: BP 131/83; PULSE 61; RESP 17; TEMP 97.4; O2SAT 98
[2024-01-09] MEDS: insulin glargine (Lantus) pen - multi-dose SQ SCH (20:38)
[2024-01-09] MEDS: insulin regular, human U-100 3ml vial - multi-dose SQ SCH (20:38)
[2024-01-09 22:00] VITALS: BP 141/81; PULSE 85; RESP 16; TEMP 98.1; O2SAT 96
[2024-01-10 06:00] VITALS: BP 95/60; PULSE 68; RESP 13; TEMP 97.1; O2SAT 97
[2024-01-10 08:00] VITALS: RESP 13; O2SAT 97
[2024-01-10 08:16] LABS: BASOPHILS % (AUTO) 0.4 % (0-1); EOSINOPHILS # (AUTO) 0.3 X10'3 (0-0.9); HEMATOCRIT 34.8 % (35.0-45.0); HEMOGLOBIN 11.6 g/dl (12.0-16.0); LYMPHOCYTES # (AUTO) 2.9 X10'3 (1.1-4.8); LYMPHOCYTES % (AUTO) 25.9 % (21-51); MEAN CORPUSCULAR HEMOGLOBIN 28.5 PG (27.0-31.0); MEAN CORPUSCULAR HGB CONC 33.3 g/dL (33.0-36.5); MEAN CORPUSCULAR VOLUME 85.4 FL (78-98); MEAN PLATELET VOLUME 8.3 FL (7.4-10.4); MONOCYTES # (AUTO) 0.6 X10'3 (0-0.9); MONOCYTES % (AUTO) 5.1 % (2-12); NEUTROPHILS # (AUTO) 7.4 X10'3 (1.8-7.7); NEUTROPHILS % (AUTO) 65.6 % (42-75); PLATELET COUNT 213 X10'3 (140-440); RED BLOOD COUNT 4.07 X10'6 (4.20-5.60); RED CELL DISTRIBUTION WIDTH 15.3 % (11.5-14.5); WHITE BLOOD COUNT 11.3 X10'3 (4.5-11.0)
[2024-01-10 08:38] LABS: ALANINE AMINOTRANSFERASE 24 U/L (12-78); ALBUMIN 2.6 G/DL (3.4-5.0); ALBUMIN/GLOBULIN RATIO 0.5 (1.1-1.5); ALKALINE PHOSPHATASE 69 IU/L (46-116); ANION GAP 9 (8-16); ASPARTATE AMINO TRANSFERASE 19 U/L (10-37); BILIRUBIN,TOTAL 0.4 MG/DL (0.1-1.0); BLOOD UREA NITROGEN 14 MG/DL (7-18); BUN/CREATININE RATIO 23.7 (10.0-20.0); CALCIUM 9.6 MG/DL (8.5-10.1); CHLORIDE 103 MMOL/L (99-107); CREATININE 0.59 MG/DL (0.40-0.90); GLUCOSE 216 MG/DL (70-104); POTASSIUM 3.6 MMOL/L (3.5-5.1); SODIUM 141 MMOL/L (135-145); TOTAL CARBON DIOXIDE 28.9 MMOL/L (24-32); TOTAL PROTEIN 7.4 G/DL (6.4-8.2); eCRCL 126 ML/MIN; eGFR > 90 ML/MIN
[2024-01-10 10:00] VITALS: BP 103/60; PULSE 70; RESP 16; TEMP 97.1; O2SAT 96
[2024-01-10 18:00] VITALS: BP 146/86; PULSE 81; RESP 16; TEMP 98.7; O2SAT 97
[2024-01-10 20:00] VITALS: RESP 16; O2SAT 97
[2024-01-10 22:00] VITALS: BP 155/97; PULSE 87; RESP 18; TEMP 96.9; O2SAT 97
[2024-01-11 06:00] VITALS: BP 152/83; PULSE 83; RESP 16; TEMP 97.2; O2SAT 99
[2024-01-11 10:00] VITALS: BP 129/84; PULSE 77; RESP 16; TEMP 97.6; O2SAT 98
[2024-01-11 18:00] VITALS: BP 114/81; PULSE 83; RESP 18; TEMP 97.9; O2SAT 97
[2024-01-11] MEDS: gabapentin 400mg capsule PO SCH (21:14)
[2024-01-11 21:47] VITALS: BP 126/64; PULSE 98; RESP 16; TEMP 96.7; O2SAT 97
[2024-01-12 06:23] VITALS: BP 113/51; PULSE 67; RESP 16; TEMP 97.5; O2SAT 97
[2024-01-12 08:00] VITALS: RESP 16; O2SAT 96
[2024-01-12 10:00] VITALS: BP 121/58; PULSE 75; RESP 16; TEMP 97.9; O2SAT 96
[2024-01-12] MEDS: gabapentin 100mg capsule PO SCH (14:59)
[2024-01-12 18:00] VITALS: BP 156/95; PULSE 90; RESP 18; TEMP 98.1; O2SAT 95
[2024-01-12 20:00] VITALS: RESP 18; O2SAT 95
[2024-01-12 22:00] VITALS: BP 147/78; PULSE 86; RESP 18; TEMP 98.6; O2SAT 95
[2024-01-13 06:23] VITALS: BP 104/68; PULSE 74; RESP 16; TEMP 97.6; O2SAT 97
[2024-01-13 08:00] VITALS: RESP 16; O2SAT 96
[2024-01-13 10:00] VITALS: BP 129/72; PULSE 78; RESP 18; TEMP 97.3; O2SAT 96
[2024-01-13 13:41] LABS: ALANINE AMINOTRANSFERASE 21 U/L (12-78); ALBUMIN 2.5 G/DL (3.4-5.0); ALBUMIN/GLOBULIN RATIO 0.5 (1.1-1.5); ALKALINE PHOSPHATASE 77 IU/L (46-116); ANION GAP 8 (8-16); ASPARTATE AMINO TRANSFERASE 8 U/L (10-37); BILIRUBIN,TOTAL 0.6 MG/DL (0.1-1.0); BLOOD UREA NITROGEN 22 MG/DL (7-18); BUN/CREATININE RATIO 41.5 (10.0-20.0); CHLORIDE 103 MMOL/L (99-107); CREATININE 0.53 MG/DL (0.40-0.90); GLUCOSE 158 MG/DL (70-104); POTASSIUM 3.6 MMOL/L (3.5-5.1); SODIUM 141 MMOL/L (135-145); TOTAL PROTEIN 7.2 G/DL (6.4-8.2); eCRCL 140 ML/MIN; eGFR > 90 ML/MIN
[2024-01-13 18:00] VITALS: BP 133/82; PULSE 80; RESP 18; TEMP 98.9; O2SAT 95
[2024-01-13 20:00] VITALS: RESP 16; O2SAT 97
[2024-01-13] MEDS: gabapentin 100mg capsule PO SCH (20:12)
[2024-01-13 22:00] VITALS: BP 140/83; PULSE 82; RESP 16; TEMP 98.3; O2SAT 97
[2024-01-14 06:00] VITALS: BP 121/62; PULSE 78; RESP 16; TEMP 98.2; O2SAT 97
[2024-01-14 08:00] VITALS: RESP 16; O2SAT 97
[2024-01-14 10:00] VITALS: BP 119/64; PULSE 74; RESP 17; TEMP 98.8; O2SAT 95
[2024-01-14 18:00] VITALS: BP 97/62; PULSE 78; RESP 15; TEMP 98.2; O2SAT 98
[2024-01-14 20:00] VITALS: RESP 16; O2SAT 96
[2024-01-14 22:00] VITALS: BP 140/78; PULSE 73; RESP 16; TEMP 97.4; O2SAT 96
[2024-01-14] MEDS ORDERED: bisacodyl 10mg suppository rectal RC PRN (22:25)
[2024-01-15 07:11] VITALS: BP 121/72; PULSE 76; RESP 16; TEMP 97.4; O2SAT 98
[2024-01-15 08:40] VITALS: RESP 16; O2SAT 94
[2024-01-15 10:00] VITALS: BP 119/78; PULSE 67; RESP 14; TEMP 97.3; O2SAT 94
[2024-01-15 18:00] VITALS: BP 108/63; PULSE 74; RESP 18; TEMP 98; O2SAT 97
[2024-01-15 20:00] VITALS: RESP 18; O2SAT 96
[2024-01-15 22:00] VITALS: BP 140/75; PULSE 76; RESP 18; TEMP 98.2; O2SAT 97
[2024-01-16] VITALS (8 sets, daily range): BP systolic 122–145; BP diastolic 58–79; PULSE 70–73; RESP 12–20; TEMP 97.6–98.4; O2SAT 98–99
[2024-01-17 06:00] VITALS: BP 142/84; PULSE 81; RESP 21; TEMP 98.3; O2SAT 99
[2024-01-17 08:00] VITALS: RESP 21; O2SAT 99
[2024-01-17 10:00] VITALS: BP 154/74; PULSE 83; RESP 16; TEMP 98.5; O2SAT 98
[2024-01-17 18:30] VITALS: BP 148/74; PULSE 77; RESP 16; TEMP 97.4; O2SAT 98
[2024-01-17 20:00] VITALS: RESP 16; O2SAT 98
[2024-01-17 22:00] VITALS: BP 118/81; PULSE 75; RESP 16; TEMP 98.4; O2SAT 98
[2024-01-18] VITALS (7 sets, daily range): BP systolic 105–149; BP diastolic 65–98; PULSE 76–85; RESP 16–18; TEMP 96.8–97.9; O2SAT 95–99
[2024-01-19 06:00] VITALS: BP 126/73; PULSE 71; RESP 16; TEMP 97.8; O2SAT 100
[2024-01-19 10:00] VITALS: BP 129/68; PULSE 64; RESP 16; TEMP 97.3; O2SAT 98
[2024-01-19 18:00] VITALS: BP 156/79; PULSE 80; RESP 16; TEMP 98.3; O2SAT 98
[2024-01-19 20:01] VITALS: RESP 18; O2SAT 99
[2024-01-19 22:00] VITALS: BP 143/95; PULSE 99; RESP 13; TEMP 98.6; O2SAT 98
[2024-01-20 06:00] VITALS: BP 123/69; PULSE 78; RESP 16; TEMP 97.7; O2SAT 97
[2024-01-20 10:00] VITALS: BP 107/74; PULSE 71; RESP 18; TEMP 98.2; O2SAT 96
[2024-01-20] MEDS ORDERED: mupirocin 2% cream 15gm TP SCH (11:05)
[2024-01-20] MEDS: mupirocin 2% ointment 22GM TP SCH (11:18)
[2024-01-20 18:00] VITALS: BP 153/85; PULSE 80; RESP 16; TEMP 97.7; O2SAT 97
[2024-01-20 22:00] VITALS: BP 151/91; PULSE 80; RESP 18; TEMP 98.3; O2SAT 98
[2024-01-21 06:00] VITALS: BP 139/80; PULSE 71; RESP 16; TEMP 97.3; O2SAT 96
[2024-01-21 07:10] VITALS: BP_SYST 106; PULSE 61
[2024-01-21 08:00] VITALS: RESP 14; O2SAT 95
== END 2024-01-21 09:45 | DRG 64 ==
LOC: ER 16:58 → ED HOLD 11-11 04:14 → ORTHO 4S 11-11 19:29
PROVIDERS: ADMIT Family Medicine; ATTEND Family Medicine
PROC: 4A00X4Z Measurement of Central Nervous Electrical Activity, External Approach (ICD-10-PCS; 2023-11-11)
PROC: B3251ZZ Computerized Tomography (CT Scan) of Bilateral Common Carotid Arteries using Low Osmolar Contrast (ICD-10-PCS; 2023-11-11)
PROC: B32G1ZZ Computerized Tomography (CT Scan) of Bilateral Vertebral Arteries using Low Osmolar Contrast (ICD-10-PCS; 2023-11-11)
PROC: B32R1ZZ Computerized Tomography (CT Scan) of Intracranial Arteries using Low Osmolar Contrast (ICD-10-PCS; 2023-11-11)
PROC: B3281ZZ Computerized Tomography (CT Scan) of Bilateral Internal Carotid Arteries using Low Osmolar Contrast (ICD-10-PCS; 2023-11-11)
PROC: B3251ZZ Computerized Tomography (CT Scan) of Bilateral Common Carotid Arteries using Low Osmolar Contrast (ICD-10-PCS; 2023-11-13)
PROC: B32G1ZZ Computerized Tomography (CT Scan) of Bilateral Vertebral Arteries using Low Osmolar Contrast (ICD-10-PCS; 2023-11-13)
PROC: B32R1ZZ Computerized Tomography (CT Scan) of Intracranial Arteries using Low Osmolar Contrast (ICD-10-PCS; 2023-11-13)
PROC: B3281ZZ Computerized Tomography (CT Scan) of Bilateral Internal Carotid Arteries using Low Osmolar Contrast (ICD-10-PCS; 2023-11-13)
PROC: BW241ZZ Computerized Tomography (CT Scan) of Chest and Abdomen using Low Osmolar Contrast (ICD-10-PCS; 2023-11-15)
PROC: 8E0W4CZ Robotic Assisted Procedure of Trunk Region, Percutaneous Endoscopic Approach (ICD-10-PCS; 2023-11-19)
PROC: 0DH63UZ Insertion of Feeding Device into Stomach, Percutaneous Approach (ICD-10-PCS; principal; 2023-11-19 15:48)
DX: I63.89 Other cerebral infarction (principal); G93.41 Metabolic encephalopathy; I16.1 Hypertensive emergency; I67.4 Hypertensive encephalopathy; E87.0 Hyperosmolality and hypernatremia; R82.71 Bacteriuria; Z20.822 Contact with and (suspected) exposure to COVID-19; R29.724 NIHSS score 24; E66.9 Obesity, unspecified; E11.9 Type 2 diabetes mellitus without complications; A53.9 Syphilis, unspecified; E78.00 Pure hypercholesterolemia, unspecified; K21.9 Gastro-esophageal reflux disease without esophagitis; I10 Essential (primary) hypertension; Z79.84 Long term (current) use of oral hypoglycemic drugs; Z79.899 Other long term (current) drug therapy; Z68.36 Body mass index [BMI] 36.0-36.9, adult; Z81.8 Family history of other mental and behavioral disorders
CPT/HCPCS: 36415; 70450; 70460; 70496; 70498; 70551; 71045; 71275; 74018; 74177; 80048; 80053; 80061; 80305; 80320; 81001; 81025; 81479; 82140; 82948; 83036; 83605; 83735; 83880; 83891; 83894; 83898; 84100; 84132; 84134; 84145; 84443; 84484; 84703; 85025; 85300; 85301; 85303; 85305; 85306; 85610; 85730; 86038; 86146; 86147; 86256; 86592; 86703; 86803; 87040; 87077; 87081; 87088; 87186; 87502; 87503; 87522; 87811; 90732; 92508; 92616; 92960; 93005; 93306; 93312; 93325; 93970; 95816; 96374; 97110; 97112; 97161; 97530; 97535; 97760; 99152; 99153; 99285; A4215; A4314; A4615; A4618; A4624; A4649; A5200; A6209; A6212; A6213; A6250; A6402; A6449; A6590; A7000; C1758; G0378; J0131; J0360; J0694; J0696; J1100; J1630; J1644; J1815; J2250; J2270; J2370; J2405; J2704; J2710; J3010; J3480; J3490; J7030; J7040; J7050; J7070; J7120; Q0163; Q9967

== ENCOUNTER 2024-09-04 13:36 | Inpatient (IN) | payer MEDICARE, MEDICAID ==
[~2024-09-04] VITALS: Ht 177.8 cm; Wt 99.2 kg
[~2024-09-04 13:36] MED LIST changes: +CEPH-585 PO; +SULF1TAB49 PO
[2024-09-04 14:36] LABS: BASOPHILS # (AUTO) 0.1 X10'3 (0-0.2); BASOPHILS % (AUTO) 0.6 % (0-1); EOSINOPHILS # (AUTO) 0.3 X10'3 (0-0.9); EOSINOPHILS % (AUTO) 2.7 % (0-6); HEMATOCRIT 39.8 % (35.0-45.0); HEMOGLOBIN 13.1 g/dl (12.0-16.0); LYMPHOCYTES # (AUTO) 4.3 X10'3 (1.1-4.8); LYMPHOCYTES % (AUTO) 38.8 % (21-51); MEAN CORPUSCULAR HEMOGLOBIN 27.9 PG (27.0-31.0); MEAN CORPUSCULAR HGB CONC 32.9 g/dL (33.0-36.5); MEAN CORPUSCULAR VOLUME 84.7 FL (78-98); MONOCYTES # (AUTO) 0.5 X10'3 (0-0.9); MONOCYTES % (AUTO) 4.5 % (2-12); NEUTROPHILS # (AUTO) 5.9 X10'3 (1.8-7.7); NEUTROPHILS % (AUTO) 53.4 % (42-75); PLATELET COUNT 222 X10'3 (140-440)
[2024-09-04 14:49] LABS: ALANINE AMINOTRANSFERASE 19 U/L (12-78); ALBUMIN 3.2 G/DL (3.4-5.0); ALBUMIN/GLOBULIN RATIO 0.6 (1.1-1.5); ALKALINE PHOSPHATASE 71 IU/L (46-116); ANION GAP 6 (8-16); ASPARTATE AMINO TRANSFERASE 20 U/L (10-37); BILIRUBIN,TOTAL 0.7 MG/DL (0.1-1.0); BLOOD UREA NITROGEN 16 MG/DL (7-18); BUN/CREATININE RATIO 21.1 (10.0-20.0); CALCIUM 8.9 MG/DL (8.5-10.1); CHLORIDE 105 MMOL/L (99-107); CREATININE 0.76 MG/DL (0.40-0.90); GLUCOSE 207 MG/DL (70-104); POTASSIUM 3.5 MMOL/L (3.5-5.1); SODIUM 138 MMOL/L (135-145); TOTAL CARBON DIOXIDE 27.5 MMOL/L (24-32); TOTAL PROTEIN 8.2 G/DL (6.4-8.2); eCRCL 100 ML/MIN; eGFR 82 ML/MIN
[2024-09-04] MEDS: CefTRIAXone 2gm/D5W 50ml BAG 50 ML IV ONE (15:19)
[2024-09-04 15:51] LABS: BILIRUBIN,URINE NEGATIVE (Neg); COLOR,URINE YELLOW (Yellow); GLUCOSE, URINE 500 mg/dl (Neg); KETONES,URINE TRACE mg/dl (Neg); LEUKOCYTE ESTERASE ,URINE NEGATIVE (Neg); NITRITES, URINE NEGATIVE (Neg); OCCULT BLOOD,URINE LARGE (Neg); PROTEIN,URINE >=300 mg/dl (Neg)
[2024-09-04 16:00] LABS: CLARITY,URINE CLOUDY (Clear); UA COLLECTION TYPE FOLEY CATH
[2024-09-04 16:01] LABS: SQUAMOUS EPITHELIAL CELL,UR NONE SEEN /LPF (FEW)
[2024-09-04 16:02] LABS: BACTERIA,URINE FEW /HPF (Neg); RBC,URINE TNTC /HPF (0-2); WBC,URINE TNTC /HPF (0-4)
[2024-09-04] MEDS ORDERED: magnesium Cl slow-release 64mg tablet PO PRN (16:50)
[2024-09-04] MEDS ORDERED: mag hydrox/Alum hydrox/simeth 30ml oral suspension PO PRN (16:50)
[2024-09-04] MEDS ORDERED: potassium Cl 20 mEq SR tablet PO PRN ×2 (16:50)
[2024-09-04] MEDS ORDERED: ondansetron/PF 4mg/2ml inj IV PRN (16:50)
[2024-09-04] MEDS ORDERED: magnesium sulf-water 2g/50mL 50 ML IV PRN (16:50)
[2024-09-04] MEDS ORDERED: magnesium sulf-water 4G/100mL 100 ML IV PRN (16:50)
[2024-09-04] MEDS ORDERED: potassium Cl 40MEQ/1/2NS 520ml 520 ML IV PRN (16:50)
[2024-09-04] MEDS ORDERED: acetaminophen 325mg tablet PO PRN (16:50)
[2024-09-04] MEDS ORDERED: magnesium hydroxide 30ml (MOM) UD suspension PO PRN (16:50)
[2024-09-04] MEDS: normal saline 1000ml 1,000 ML IV ONE ×2 (16:58)
[2024-09-04] MEDS ORDERED: acetaminophen 325mg/10.15ml oral unit dose solution GT PRN (17:42)
[2024-09-04] MEDS ORDERED: mag hydrox/Alum hydrox/simeth 30ml oral suspension GT PRN (17:42)
[2024-09-04] MEDS ORDERED: magnesium hydroxide 30ml (MOM) UD suspension GT PRN (17:43)
[2024-09-04] MEDS ORDERED: POTASSIUM CHLORIDE 20 MEQ/15 ML oral solution GT PRN (17:45)
[2024-09-04] MEDS ORDERED: DEXTROSE 15 GM of carb/4 tabs (each vial/BOTTLE has 4 tablets) PO PRN ×2 (17:55)
[2024-09-04] MEDS ORDERED: dextrose 50%-water 50ml dispensing syringe IV PRN ×2 (17:55)
[2024-09-04] MEDS ORDERED: glucagon, human recombinant 1mg kit SUBCUT PRN (17:55)
[2024-09-04] MEDS: normal saline 1000ml 1,000 ML IV SCH (19:04)
[2024-09-04] MEDS: K and/or MAG REPLACEMENT MC SCH (20:00)
[2024-09-04] MEDS: piperacillin/tazo 3.375gm/50ml 50 ML IV SCH (21:25)
[2024-09-04] MEDS: docusate sodium 100mg/10ml UD cup GT SCH (21:25)
[2024-09-04] MEDS: heparin, porcine 5000 units/ml vial SQ SCH (22:33)
[2024-09-04] MEDS: INSULIN LISPRO 100 UNIT/ML INSULN.PEN MULTI-DOSE SQ SCH (22:34)
[2024-09-04] MEDS: insulin glargine (Lantus) pen - multi-dose SQ SCH (22:38)
[2024-09-05 03:40] LABS: BASOPHILS % (AUTO) 0.3 % (0-1); EOSINOPHILS # (AUTO) 0.3 X10'3 (0-0.9); EOSINOPHILS % (AUTO) 3.3 % (0-6); HEMATOCRIT 37.1 % (35.0-45.0); HEMOGLOBIN 12.2 g/dl (12.0-16.0); LYMPHOCYTES % (AUTO) 44.5 % (21-51); MEAN CORPUSCULAR VOLUME 84.8 FL (78-98); MEAN PLATELET VOLUME 9.3 FL (7.4-10.4); MONOCYTES # (AUTO) 0.4 X10'3 (0-0.9); MONOCYTES % (AUTO) 4.2 % (2-12); NEUTROPHILS # (AUTO) 4.3 X10'3 (1.8-7.7); NEUTROPHILS % (AUTO) 47.7 % (42-75); PLATELET COUNT 183 X10'3 (140-440); RED BLOOD COUNT 4.38 X10'6 (4.20-5.60); RED CELL DISTRIBUTION WIDTH 13.6 % (11.5-14.5)
[2024-09-05 03:57] LABS: ALANINE AMINOTRANSFERASE 17 U/L (12-78); ALBUMIN 2.8 G/DL (3.4-5.0); ALBUMIN/GLOBULIN RATIO 0.7 (1.1-1.5); ALKALINE PHOSPHATASE 61 IU/L (46-116); ANION GAP 8 (8-16); ASPARTATE AMINO TRANSFERASE 15 U/L (10-37); BILIRUBIN,TOTAL 0.6 MG/DL (0.1-1.0); BLOOD UREA NITROGEN 7 MG/DL (7-18); BUN/CREATININE RATIO 15.6 (10.0-20.0); CALCIUM 8.4 MG/DL (8.5-10.1); CHLORIDE 108 MMOL/L (99-107); CHOL/HDL RATIO 2.8 (0.00-4.99); CHOLESTEROL 110 MG/DL (0-200); CREATININE 0.45 MG/DL (0.40-0.90); GLUCOSE 122 MG/DL (70-104); HDL CHOLESTEROL 40 MG/DL (35-60); LDL CHOLESTEROL 54 MG/DL (50-100); MAGNESIUM 1.8 MG/DL (1.5-2.4); POTASSIUM 3.3 MMOL/L (3.5-5.1); SODIUM 140 MMOL/L (135-145); TOTAL CARBON DIOXIDE 23.9 MMOL/L (24-32); TOTAL PROTEIN 7.1 G/DL (6.4-8.2); TRIGLYCERIDES 74 MG/DL (20-135); eCRCL 169 ML/MIN; eGFR > 90 ML/MIN
[2024-09-05] MEDS: POTASSIUM CHLORIDE 20 MEQ/15 ML oral solution GT PRN (08:47)
[2024-09-05 11:47] LABS: URINE HCG NEGATIVE (NEG)
[2024-09-05 12:10] VITALS: BP 121/73; PULSE 85; RESP 16; TEMP 97.8; O2SAT 97
[2024-09-05 18:00] VITALS: BP 99/67; PULSE 68; RESP 16; TEMP 98; O2SAT 97
[2024-09-05 20:30] VITALS: RESP 16
[2024-09-05 22:00] VITALS: BP 110/62; PULSE 58; RESP 12; TEMP 98.7; O2SAT 93
[2024-09-06 04:58] LABS: BASOPHILS % (AUTO) 0.4 % (0-1); EOSINOPHILS # (AUTO) 0.3 X10'3 (0-0.9); EOSINOPHILS % (AUTO) 3.3 % (0-6); HEMATOCRIT 34.9 % (35.0-45.0); HEMOGLOBIN 11.5 g/dl (12.0-16.0); LYMPHOCYTES # (AUTO) 4.4 X10'3 (1.1-4.8); LYMPHOCYTES % (AUTO) 49.2 % (21-51); MEAN CORPUSCULAR HEMOGLOBIN 28.1 PG (27.0-31.0); MEAN CORPUSCULAR VOLUME 85.2 FL (78-98); MEAN PLATELET VOLUME 8.8 FL (7.4-10.4); MONOCYTES # (AUTO) 0.4 X10'3 (0-0.9); MONOCYTES % (AUTO) 4.3 % (2-12); NEUTROPHILS # (AUTO) 3.8 X10'3 (1.8-7.7); NEUTROPHILS % (AUTO) 42.8 % (42-75); PLATELET COUNT 195 X10'3 (140-440); RED CELL DISTRIBUTION WIDTH 14.2 % (11.5-14.5); WHITE BLOOD COUNT 8.9 X10'3 (4.5-11.0)
[2024-09-06 05:16] LABS: ALANINE AMINOTRANSFERASE 14 U/L (12-78); ALBUMIN 2.7 G/DL (3.4-5.0); ALBUMIN/GLOBULIN RATIO 0.6 (1.1-1.5); ALKALINE PHOSPHATASE 57 IU/L (46-116); ANION GAP 8 (8-16); ASPARTATE AMINO TRANSFERASE 9 U/L (10-37); BILIRUBIN,TOTAL 0.7 MG/DL (0.1-1.0); BLOOD UREA NITROGEN 7 MG/DL (7-18); BUN/CREATININE RATIO 11.7 (10.0-20.0); CALCIUM 8.7 MG/DL (8.5-10.1); CHLORIDE 107 MMOL/L (99-107); GLUCOSE 131 MG/DL (70-104); MAGNESIUM 1.8 MG/DL (1.5-2.4); POTASSIUM 3.9 MMOL/L (3.5-5.1); SODIUM 140 MMOL/L (135-145); TOTAL CARBON DIOXIDE 25.1 MMOL/L (24-32); TOTAL PROTEIN 7.3 G/DL (6.4-8.2); eCRCL 127 ML/MIN; eGFR > 90 ML/MIN
[2024-09-06 06:00] VITALS: BP 122/62; PULSE 58; RESP 13; TEMP 97.7; O2SAT 93
[2024-09-06 08:00] VITALS: RESP 13; O2SAT 93
[2024-09-06] MEDS: morphine 2 MG/ML inj. syringe IV PRN (16:05)
[2024-09-06 20:00] VITALS: RESP 16; O2SAT 98
[2024-09-06 22:00] VITALS: BP 129/69; PULSE 63; TEMP 97.9
[2024-09-06] MEDS: sucralfate 1 gm tablet PO SCH (22:37)
[2024-09-06] MEDS: simvastatin 20mg tablet PO SCH (22:38)
[2024-09-07 04:51] LABS: BASOPHILS % (AUTO) 0.5 % (0-1); EOSINOPHILS # (AUTO) 0.2 X10'3 (0-0.9); HEMATOCRIT 37.8 % (35.0-45.0); HEMOGLOBIN 12.7 g/dl (12.0-16.0); LYMPHOCYTES # (AUTO) 3.4 X10'3 (1.1-4.8); LYMPHOCYTES % (AUTO) 43.3 % (21-51); MEAN CORPUSCULAR HEMOGLOBIN 28.3 PG (27.0-31.0); MEAN CORPUSCULAR HGB CONC 33.5 g/dL (33.0-36.5); MEAN CORPUSCULAR VOLUME 84.6 FL (78-98); MEAN PLATELET VOLUME 9.1 FL (7.4-10.4); MONOCYTES # (AUTO) 0.3 X10'3 (0-0.9); MONOCYTES % (AUTO) 4.4 % (2-12); NEUTROPHILS # (AUTO) 3.8 X10'3 (1.8-7.7); NEUTROPHILS % (AUTO) 48.8 % (42-75); PLATELET COUNT 188 X10'3 (140-440); RED BLOOD COUNT 4.47 X10'6 (4.20-5.60); RED CELL DISTRIBUTION WIDTH 14.2 % (11.5-14.5); WHITE BLOOD COUNT 7.8 X10'3 (4.5-11.0)
[2024-09-07 05:12] LABS: ALANINE AMINOTRANSFERASE 14 U/L (12-78); ALBUMIN 2.8 G/DL (3.4-5.0); ALBUMIN/GLOBULIN RATIO 0.6 (1.1-1.5); ALKALINE PHOSPHATASE 66 IU/L (46-116); ANION GAP 8 (8-16); ASPARTATE AMINO TRANSFERASE 14 U/L (10-37); BILIRUBIN,TOTAL 0.6 MG/DL (0.1-1.0); BLOOD UREA NITROGEN 6 MG/DL (7-18); BUN/CREATININE RATIO 8.6 (10.0-20.0); CALCIUM 8.8 MG/DL (8.5-10.1); CHLORIDE 107 MMOL/L (99-107); GLUCOSE 164 MG/DL (70-104); MAGNESIUM 1.8 MG/DL (1.5-2.4); POTASSIUM 3.9 MMOL/L (3.5-5.1); PREALBUMIN 15.4 MG/DL (19-36); SODIUM 140 MMOL/L (135-145); TOTAL CARBON DIOXIDE 25.1 MMOL/L (24-32); TOTAL PROTEIN 7.2 G/DL (6.4-8.2); eCRCL 109 ML/MIN; eGFR 90 ML/MIN
[2024-09-07 06:00] VITALS: BP 131/79; PULSE 88; TEMP 98
[2024-09-07 09:05] VITALS: RESP 13; O2SAT 93
[2024-09-07] MEDS: pantoprazole 40mg Tablet.DR PO SCH (09:13)
[2024-09-07 12:09] VITALS: BP 145/83; PULSE 76; RESP 18; TEMP 97.4; O2SAT 99
[2024-09-07] MEDS ORDERED: LACT1CAP26 PO (12:39)
[2024-09-07] MEDS ORDERED: SULF1TAB49 PO (12:39)
[2024-09-07 18:00] VITALS: BP 125/73; PULSE 70; RESP 16; TEMP 97; O2SAT 98
[2024-09-07 20:00] VITALS: RESP 16; O2SAT 97
[2024-09-07 22:00] VITALS: BP 109/70; PULSE 70; RESP 16; TEMP 97.8; O2SAT 97
[2024-09-08 04:37] LABS: BASOPHILS % (AUTO) 0.6 % (0-1); EOSINOPHILS # (AUTO) 0.2 X10'3 (0-0.9); EOSINOPHILS % (AUTO) 3.1 % (0-6); HEMATOCRIT 35.3 % (35.0-45.0); HEMOGLOBIN 11.8 g/dl (12.0-16.0); LYMPHOCYTES # (AUTO) 3.3 X10'3 (1.1-4.8); LYMPHOCYTES % (AUTO) 49.8 % (21-51); MEAN CORPUSCULAR HEMOGLOBIN 28.3 PG (27.0-31.0); MEAN CORPUSCULAR HGB CONC 33.4 g/dL (33.0-36.5); MEAN CORPUSCULAR VOLUME 84.6 FL (78-98); MEAN PLATELET VOLUME 8.6 FL (7.4-10.4); MONOCYTES # (AUTO) 0.3 X10'3 (0-0.9); MONOCYTES % (AUTO) 4.9 % (2-12); NEUTROPHILS # (AUTO) 2.8 X10'3 (1.8-7.7); NEUTROPHILS % (AUTO) 41.6 % (42-75); PLATELET COUNT 171 X10'3 (140-440); RED BLOOD COUNT 4.18 X10'6 (4.20-5.60); RED CELL DISTRIBUTION WIDTH 14.1 % (11.5-14.5); WHITE BLOOD COUNT 6.7 X10'3 (4.5-11.0)
[2024-09-08 05:01] LABS: ALANINE AMINOTRANSFERASE 15 U/L (12-78); ALBUMIN 2.6 G/DL (3.4-5.0); ALBUMIN/GLOBULIN RATIO 0.6 (1.1-1.5); ALKALINE PHOSPHATASE 63 IU/L (46-116); ANION GAP 7 (8-16); ASPARTATE AMINO TRANSFERASE 12 U/L (10-37); BILIRUBIN,TOTAL 0.4 MG/DL (0.1-1.0); BLOOD UREA NITROGEN 9 MG/DL (7-18); BUN/CREATININE RATIO 14.5 (10.0-20.0); CALCIUM 8.5 MG/DL (8.5-10.1); CHLORIDE 104 MMOL/L (99-107); CREATININE 0.62 MG/DL (0.40-0.90); GLUCOSE 159 MG/DL (70-104); POTASSIUM 4.3 MMOL/L (3.5-5.1); SODIUM 137 MMOL/L (135-145); TOTAL CARBON DIOXIDE 26.3 MMOL/L (24-32); TOTAL PROTEIN 6.8 G/DL (6.4-8.2); eCRCL 123 ML/MIN; eGFR > 90 ML/MIN
[2024-09-08 06:00] VITALS: BP 140/75; PULSE 73; RESP 16; TEMP 97.8; O2SAT 97
[2024-09-14] MEDS ORDERED: LEVO-65 PO (21:33)
== END 2024-09-08 10:15 | disposition home health service (06) | DRG 698 ==
LOC: ER 13:36 → ED HOLD 16:26 → SUR 3N 09-05 11:45
PROVIDERS: ADMIT Family Medicine; ATTEND Family Medicine
DX: T83.511A Infection and inflammatory reaction due to indwelling urethral catheter, initial encounter (principal); G93.41 Metabolic encephalopathy; N30.01 Acute cystitis with hematuria; I47.29 Other ventricular tachycardia; G81.91 Hemiplegia, unspecified affecting right dominant side; Z16.24 Resistance to multiple antibiotics; T83.83XA Hemorrhage due to genitourinary prosthetic devices, implants and grafts, initial encounter; E86.0 Dehydration; R47.1 Dysarthria and anarthria; E78.00 Pure hypercholesterolemia, unspecified; E11.9 Type 2 diabetes mellitus without complications; K21.9 Gastro-esophageal reflux disease without esophagitis; E78.5 Hyperlipidemia, unspecified; Y83.8 Other surgical procedures as the cause of abnormal reaction of the patient, or of later complication, without mention of misadventure at the time of the procedure; Y92.89 Other specified places as the place of occurrence of the external cause; Z79.84 Long term (current) use of oral hypoglycemic drugs; Z79.899 Other long term (current) drug therapy
CPT/HCPCS: 36415; 76770; 80053; 80061; 81001; 81025; 82948; 83605; 83735; 84134; 85025; 87040; 87081; 87088; 92508; 92616; 96365; 97161; 97530; 97535; 99285; A4314; A5200; A6446; G0378; J0696; J1644; J1815; J2270; J2543; J7030

== ENCOUNTER 2024-09-28 14:15 | Emergency (ER) | payer MEDICARE, MEDICAID ==
[~2024-09-28] VITALS: Ht 177.8 cm; Wt 93.0 kg
[~2024-09-28 14:15] MED LIST changes: -CEPH-585 PO; +LACT1CAP26 PO; -LANS15CA15 PO; -SULF1TAB49 PO
[2024-09-28 14:23] VITALS: TEMP 98
[2024-09-28 17:37] VITALS: BP 115/81; PULSE 90; RESP 17; O2SAT 98
== END 2024-09-28 17:40 | disposition home or self-care (01) ==
LOC: ER 14:16
DX: Z46.6 Encounter for fitting and adjustment of urinary device (principal); E11.9 Type 2 diabetes mellitus without complications; E78.00 Pure hypercholesterolemia, unspecified; K21.9 Gastro-esophageal reflux disease without esophagitis; Z79.84 Long term (current) use of oral hypoglycemic drugs; Z79.899 Other long term (current) drug therapy
CPT/HCPCS: 99281; 99284

== ENCOUNTER 2024-10-03 20:36 | Emergency (ER) | payer MEDICARE, MEDICAID ==
[~2024-10-03] VITALS: Ht 177.8 cm; Wt 87.0 kg
[2024-10-03 20:46] VITALS: BP 138/80; PULSE 75; O2SAT 97
[2024-10-03] MEDS: normal saline 1000ml 1,000 ML IV ONE (21:03)
[2024-10-03 21:05] VITALS: RESP 15
[2024-10-03 21:19] LABS: BASOPHILS % (AUTO) 0.4 % (0-1); EOSINOPHILS # (AUTO) 0.3 X10'3 (0-0.9); EOSINOPHILS % (AUTO) 2.6 % (0-6); HEMATOCRIT 41.1 % (35.0-45.0); HEMOGLOBIN 14.1 g/dl (12.0-16.0); LYMPHOCYTES # (AUTO) 4.5 X10'3 (1.1-4.8); LYMPHOCYTES % (AUTO) 41.9 % (21-51); MEAN CORPUSCULAR HEMOGLOBIN 28.1 PG (27.0-31.0); MEAN CORPUSCULAR HGB CONC 34.2 g/dL (33.0-36.5); MEAN PLATELET VOLUME 8.4 FL (7.4-10.4); MONOCYTES # (AUTO) 0.4 X10'3 (0-0.9); MONOCYTES % (AUTO) 3.3 % (2-12); NEUTROPHILS # (AUTO) 5.6 X10'3 (1.8-7.7); NEUTROPHILS % (AUTO) 51.8 % (42-75); PLATELET COUNT 204 X10'3 (140-440); RED BLOOD COUNT 5.02 X10'6 (4.20-5.60); RED CELL DISTRIBUTION WIDTH 14.2 % (11.5-14.5); WHITE BLOOD COUNT 10.8 X10'3 (4.5-11.0)
[2024-10-03 21:29] LABS: ALBUMIN 3.7 G/DL (3.4-5.0); ANION GAP 9 (8-16); BLOOD UREA NITROGEN 11 MG/DL (7-18); BUN/CREATININE RATIO 19.6 (10.0-20.0); CALCIUM 9.7 MG/DL (8.5-10.1); CHLORIDE 104 MMOL/L (99-107); CREATININE 0.56 MG/DL (0.40-0.90); GLUCOSE 130 MG/DL (70-104); POTASSIUM 3.6 MMOL/L (3.5-5.1); SODIUM 140 MMOL/L (135-145); eCRCL 136 ML/MIN; eGFR > 90 ML/MIN
[2024-10-03 21:41] LABS: URINE HCG NEGATIVE (NEG)
[2024-10-03 21:46] LABS: BILIRUBIN,URINE NEGATIVE (Neg); CLARITY,URINE SLIGHTLY CLOUDY (Clear); COLOR,URINE YELLOW (Yellow); GLUCOSE, URINE NEGATIVE (Neg); KETONES,URINE 15 mg/dl (Neg); LEUKOCYTE ESTERASE ,URINE NEGATIVE (Neg); NITRITES, URINE NEGATIVE (Neg); OCCULT BLOOD,URINE NEGATIVE (Neg); PROTEIN,URINE NEGATIVE (Neg); UROBILINOGEN,URINE 0.2 E.U/dL (0.2-1.0)
[2024-10-03 21:50] LABS: UA COLLECTION TYPE URINAL
[2024-10-03 21:53] LABS: AMORPHOUS PHOSPHATES 2+; BACTERIA,URINE 1+ /HPF (Neg); RBC,URINE NONE SEEN /HPF (0-2); SQUAMOUS EPITHELIAL CELL,UR FEW /LPF (FEW); TRANSITIONAL EPI CELLS,URINE FEW /HPF; WBC,URINE 0-4 /HPF (0-4)
[2024-10-04 00:08] VITALS: TEMP 98.8
== END 2024-10-04 00:41 | disposition home or self-care (01) ==
LOC: ER 20:36
DX: Z00.00 Encounter for general adult medical examination without abnormal findings (principal); Z20.822 Contact with and (suspected) exposure to COVID-19; E78.00 Pure hypercholesterolemia, unspecified; K21.9 Gastro-esophageal reflux disease without esophagitis; E11.9 Type 2 diabetes mellitus without complications; Z79.899 Other long term (current) drug therapy
CPT/HCPCS: 36415; 71045; 80048; 81001; 81025; 83605; 83735; 84145; 85025; 87040; 87502; 87503; 87811; 93005; 96360; 99285; J7030; C1758

== ENCOUNTER 2024-11-04 14:17 | Emergency (ER) | payer MEDICARE, MEDICAID ==
[~2024-11-04] VITALS: Ht 167.6 cm; Wt 81.3 kg
[2024-11-04 14:24] VITALS: RESP 14; TEMP 98.2
[2024-11-04] MEDS ORDERED: LOSA100T58 (14:39)
[2024-11-04] MEDS ORDERED: INSU100I31 SQ (14:39)
[2024-11-04] MEDS ORDERED: CEFP200T13 (14:39)
[2024-11-04] MEDS ORDERED: LORA-269 (14:39)
[2024-11-04] MEDS ORDERED: OXYB-58 (14:39)
[2024-11-04] MEDS ORDERED: TRAZ-251 (14:39)
[2024-11-04] MEDS ORDERED: AMLO-708 (14:39)
[2024-11-04] MEDS ORDERED: GABA300S3 (14:39)
[2024-11-04] MEDS ORDERED: APIX5TAB3 PO (14:39)
[2024-11-04] MEDS ORDERED: METO5TAB98 (14:39)
[2024-11-04] MEDS: magnesium citrate 296ml oral solution PO ONE ×2 (15:20→18:08)
[2024-11-04] MEDS ORDERED: diatrozoate meglu/diatrozoate sod (37% iodine) 120ML oral solution PO ONE (16:35)
[2024-11-04] MEDS: diatr meglu/diatrizoate 30ml oral sol.-(3 dose) bottle PO ONE (16:46)
[2024-11-04] MEDS ORDERED: ziprasidone IM 20mg inj **IM only IM ONE (16:55)
[2024-11-04 18:00] LABS: BASOPHILS % (AUTO) 0.4 % (0-1); EOSINOPHILS # (AUTO) 0.2 X10'3 (0-0.9); EOSINOPHILS % (AUTO) 2.9 % (0-6); HEMATOCRIT 36.6 % (35.0-45.0); LYMPHOCYTES % (AUTO) 47.4 % (21-51); MEAN CORPUSCULAR HEMOGLOBIN 27.3 PG (27.0-31.0); MEAN CORPUSCULAR HGB CONC 32.9 g/dL (33.0-36.5); MEAN CORPUSCULAR VOLUME 83.1 FL (78-98); MEAN PLATELET VOLUME 8.9 FL (7.4-10.4); MONOCYTES # (AUTO) 0.4 X10'3 (0-0.9); MONOCYTES % (AUTO) 5.1 % (2-12); NEUTROPHILS # (AUTO) 3.7 X10'3 (1.8-7.7); NEUTROPHILS % (AUTO) 44.2 % (42-75); PLATELET COUNT 185 X10'3 (140-440); RED BLOOD COUNT 4.41 X10'6 (4.20-5.60); WHITE BLOOD COUNT 8.4 X10'3 (4.5-11.0)
[2024-11-04 18:15] LABS: ALANINE AMINOTRANSFERASE 11 U/L (12-78); ALBUMIN/GLOBULIN RATIO 0.7 (1.1-1.5); ALKALINE PHOSPHATASE 47 IU/L (46-116); ANION GAP 5 (8-16); ASPARTATE AMINO TRANSFERASE 13 U/L (10-37); BILIRUBIN,TOTAL 0.6 MG/DL (0.1-1.0); BLOOD UREA NITROGEN 12 MG/DL (7-18); BUN/CREATININE RATIO 18.5 (10.0-20.0); CALCIUM 9.1 MG/DL (8.5-10.1); CHLORIDE 106 MMOL/L (99-107); CREATININE 0.65 MG/DL (0.40-0.90); GLUCOSE 107 MG/DL (70-104); LIPASE 46 U/L (16-77); POTASSIUM 3.8 MMOL/L (3.5-5.1); SODIUM 139 MMOL/L (135-145); TOTAL CARBON DIOXIDE 28.4 MMOL/L (24-32); TOTAL PROTEIN 7.2 G/DL (6.4-8.2); eCRCL 101 ML/MIN; eGFR > 90 ML/MIN
[2024-11-04] MEDS ORDERED: POLY17PO10 PO (18:32)
[2024-11-04 18:43] VITALS: BP 145/87; PULSE 54; O2SAT 97
== END 2024-11-04 19:29 | disposition home or self-care (01) ==
LOC: ER 14:17
DX: K59.00 Constipation, unspecified (principal); E11.9 Type 2 diabetes mellitus without complications; E78.00 Pure hypercholesterolemia, unspecified; K21.9 Gastro-esophageal reflux disease without esophagitis; Z79.84 Long term (current) use of oral hypoglycemic drugs; Z79.899 Other long term (current) drug therapy
CPT/HCPCS: 36415; 74018; 74176; 80053; 83690; 85025; 99285; Q9963

== ENCOUNTER 2024-11-11 14:32 | Emergency (ER) | payer MEDICARE, MEDICAID ==
[~2024-11-11] VITALS: Ht 170.2 cm; Wt 70.5 kg
[~2024-11-11 14:32] MED LIST changes: +AMLO-708; +APIX5TAB3 PO; +CEFP200T13; -FAMO-1 PO; +GABA300S3; -GLIM4TAB7 PO; +INSU100I31 SQ; +LORA-269; +LOSA100T58; -METF-436 PO; +METO5TAB98; -OMEP-84 PO; +OXYB-58; +POLY17PO10 PO; -SIMV-42 PO; -SITA100T15 PO; -SUCR1ORA2 PO; +TRAZ-251
[2024-11-11 15:21] VITALS: BP 115/71; PULSE 76; RESP 14; TEMP 98; O2SAT 98
== END 2024-11-11 15:24 | disposition home or self-care (01) ==
LOC: ER 14:33
DX: K94.23 Gastrostomy malfunction (principal); K21.9 Gastro-esophageal reflux disease without esophagitis; E78.00 Pure hypercholesterolemia, unspecified; E11.9 Type 2 diabetes mellitus without complications; Z79.899 Other long term (current) drug therapy
CPT/HCPCS: 99283